=== PATIENT | female | born 1970 | race Two or more races ===

== ENCOUNTER 2025-03-06 21:35 | Emergency (ER) | payer MEDICAID, OTHER ==
[~2025-03-06] VITALS: Ht 165.1 cm; Wt 120.0 kg
[2025-03-06] MEDS: ONDANSETRON HCL 4 MG/2 ML VIAL IV ONE (22:00)
[2025-03-06] MEDS: LORazepam 2MG/ML-1ML VIAL IV ONE (22:00)
[2025-03-06] MEDS: HYDROmorphone HCL 2 MG/ML VL/or syr IV ONE (22:00)
[2025-03-06 22:06] LABS: Basophils # (auto) 0.1 10 ^3/uL (0-0.2); Basophils % (auto) 0.9 % (0.0-2.0); Eosinophils # (auto) 0.3 10 ^3/uL (0-0.8); Eosinophils % (auto) 3.6 % (0.0-7.0); Hematocrit 44.1 % (36.0-46.0); Lymphocytes # (auto) 2.9 10 ^3/uL (0.4-5.4); Mean Corpuscular Hemoglobin 29.1 pg (28.0-32.0); Mean Corpuscular Volume 85.6 fL (80.0-100.0); Monocytes # (auto) 0.3 10 ^3/uL (0-1.3); Monocytes % (auto) 3.8 % (0.0-12.0); Neutrophils # (auto) 4.3 10 ^3/uL (1.6-8.6); Neutrophils % (auto) 54.7 % (37.0-80.0); Nucleated Red Blood Cells % 0.4 %; Platelet Count (auto) 76 10^3/uL (140-450); Red Blood Cells 5.15 10^6/uL (4.0-5.20); White Blood Cell 7.9 10^3/uL (4.4-10.8)
[2025-03-06 22:23] LABS: Alanine Aminotransferase 23 U/L (7-40); Albumin 4.4 g/dL (3.2-4.8); Alkaline Phosphatase 76 U/L (46-116); Anion Gap 9 (5-15); Aspartate Aminotransferase 18 U/L (13-40); BUN/Creatinine Ratio 16.7 (10.0-20.0); Blood Urea Nitrogen 13 mg/dL (9-23); Calcium 9.6 mg/dL (8.7-10.4); Carbon Dioxide 21 mmol/L (20-31); Lipase 41 U/L (12-53); Potassium 3.6 mmol/L (3.5-5.1); Sodium 138 mmol/L (136-145); Total Protein 7.3 g/dL (5.7-8.2)
[2025-03-06 22:24] LABS: Bilirubin, Total 0.4 mg/dL (0.2-1.0)
--- NOTE | 2025-03-06 22:25 | ED.PDOC ---
History of Present Illness HPI Comments 54-year-old female who came to ER via EMS for back pains. Patient does have history of degenerative joint disease, states about an hour ago, while lying down, she developed sudden onset lower back pains, spasms, intermittent, unprovoked, radiating up and down her body. States she could not feel her right leg. Slightest movement aggravates her lower back pains, causing spasms throughout her body. She denies any recent trauma. 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 Family History Family History: Reviewed,noncontributory to illness Social History Smoker: Non-Smoker Alcohol: Denies ETOH Use Drugs: Denies Drug Use Lives In: Home Constitutional: denies: chills, diaphoresis, fatigue, fever, malaise, sweats, weakness, others EENTM: denies: blurred vision, double vision, ear bleeding, ear discharge, ear drainage, ear pain, ear ringing, eye pain, eye redness, hearing loss, mouth pain, mouth swelling, nasal discharge, nose bleeding, nose congestion, nose pain, photophobia, tearing, throat pain, throat swelling, voice changes, others Respiratory: denies: cough, hemoptysis, orthopnea, SOB at rest, shortness of breath, SOB with excertion, stridor, wheezing, others Cardiovascular: denies: chest pain, dizzy spells, diaphoresis, Dyspnea on exertion, edema, irregular heart beat, left arm pain, lightheadedness, palpitations, PND, syncope, others Gastrointestinal: denies: abdomen distended, abdominal pain, blood streaked bowels, constipated, diarrhea, dysphagia, difficulty swallowing, hematemesis, melena, nausea, poor appetite, poor fluid intake, rectal bleeding, rectal pain, vomiting, others Genitourinary: denies: abnormal vagina bleeding, burning, dyspareunia, dysuria, flank pain, frequency, hematuria, incontinence, pain, , vagina discharge, urgency, others Neurological: denies: dizziness, fainting, headache, left sided numbness, left sided weakness, numbness, paresthesia, pre-existing deficit, right sided numbness, right sided weakness, seizure, speech problems, tingling, tremors, weakness, others Musculoskeletal: reports: back pain; denies: gout, joint pain, joint swelling, muscle pain, muscle stiffness, neck pain, others Integumetry: denies: bruises, change in color, change in hair/nails, dryness, laceration, lesions, lumps, rash, wounds, others Allergic/Immunocompromised: denies: Difficulty Healing, Frequent Infections, Hives, Itching, others Hematologic/Lymphatic: denies: anemia, blood clots, easy bleeding, easy bruising, swollen glands, others Endocrine: denies: excessive hunger, excessive sweating, excessive thirst, excessive urination, flushing, intolerance to cold, intolerance to heat, unexplained weight gain, unexplained weight loss, others Psychiatric: denies: anxiety, bipolar disorder, depression, hopeless, panic disorder, schizophrenia, sleepless, suicidal, others Physical Exam General Appearance: No Apparent Distress, Normal HEENT: Normal ENT Inspection, Pharynx Normal, TMs Normal Neck: Full Range of Motion, Non-Tender, Normal, Normal Inspection Respiratory: Chest Non-Tender, Lungs Clear, No Accessory Muscle Use, No Respiratory Distress, Normal Breath Sounds Cardiovascular: No Edema, No JVD, No Murmur, No Gallop, Normal Peripheral Pulses, Regular Rate/Rhythm Breast Exam: Deferred Gastrointestinal: No Organomegaly, Non Tender, No Pulsatile Mass, Normal Bowel Sounds, Soft Genitalia: Deferred Pelvic: Deferred Rectal: Deferred Extremities: No calf tenderness, Normal capillary refill, Normal inspection, Normal range of motion, Non-tender, No pedal edema Musculoskeletal : Apperance: Normal Neurologic: Alert, emergency generator 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 Was a procedure done?: No Differential Dx Considerations may include: Musculoskeletal pain. Lumbosacral strain. Sciatica. Degenerative joint disease X-Ray, Labs, Meds, VS Vital Signs Date Time Temp Pulse Resp B/P (MAP) Pulse Ox O2 Delivery O2 Flow Rate FiO2 03/06/25 22:27 97.3 59 18 154/81 (105) 100 97.3 03/06/25 22:00 75 18 125/82 Lab Test 03/06/25 21:56 Range/Units White Blood Count 7.9 4.4-10.8 10^3/uL Red Blood Count 5.15 4.0-5.20 10^6/uL Hemoglobin 15.0 12.2-16.2 g/dL Hematocrit 44.1 36.0-46.0 % Mean Corpuscular Volume 85.6 80.0-100.0 fL Mean Corpuscular Hemoglobin 29.1 28.0-32.0 pg Mean Corpuscular Hemoglobin Concent 34.0 32.0-36.0 g/dL Red Cell Distribution Width 15.0 H 11.8-14.3 % Platelet Count 76 L 140-450 10^3/uL Mean Platelet Volume 8.4 6.9-10.8 fL Neutrophils (%) (Auto) 54.7 37.0-80.0 % Lymphocytes (%) (Auto) 37.0 10.0-50.0 % Monocytes (%) (Auto) 3.8 0.0-12.0 % Eosinophils (%) (Auto) 3.6 0.0-7.0 % Basophils (%) (Auto) 0.9 0.0-2.0 % Neutrophils # (Auto) 4.3 1.6-8.6 10 ^3/uL Lymphocytes # (Auto) 2.9 0.4-5.4 10 ^3/uL Monocytes # (Auto) 0.3 0-1.3 10 ^3/uL Eosinophils # (Auto) 0.3 0-0.8 10 ^3/uL Basophils # (Auto) 0.1 0-0.2 10 ^3/uL Nucleated Red Blood Cells 0.4 % Sodium Level 138 136-145 mmol/L Potassium Level 3.6 3.5-5.1 mmol/L Chloride Level 108 H 98-107 mmol/L Carbon Dioxide Level 21 20-31 mmol/L Anion Gap 9 5-15 Blood Urea Nitrogen 13 9-23 mg/dL Creatinine 0.78 0.550-1.02 mg/dL Glomerular Filtration Rate Calc 90 >90 mL/min BUN/Creatinine Ratio 16.7 10.0-20.0 Serum Glucose 110 H 74-106 mg/dL Calcium Level 9.6 8.7-10.4 mg/dL Total Bilirubin 0.4 0.2-1.0 mg/dL Aspartate Amino Transferase (AST) 18 13-40 U/L Alanine Aminotransferase (ALT) 23 7-40 U/L Alkaline Phosphatase 76 46-116 U/L Total Protein 7.3 5.7-8.2 g/dL Albumin 4.4 3.2-4.8 g/dL Lipase 41 12-53 U/L Current Medications Medications (Trade) Dose Ordered Sig/Briana Route Start Time Stop Time Status Last Admin Ondansetron HCl (Zofran) 4 mg ONCE ONCE IV 03/06/25 22:00 03/06/25 22:01 DC 03/06/25 22:00 Hydromorphone HCl (Dilaudid Injection) 1 mg ONCE ONCE IV 03/06/25 22:00 03/06/25 22:01 DC 03/06/25 22:00 Lorazepam (Ativan Inj) 1 mg ONCE ONCE IV 03/06/25 22:00 03/06/25 22:01 DC 03/06/25 22:00 CT SCAN ABDOMEN AND PELVIS WITHOUT CONTRAST CLINICAL HISTORY: low back and flank pain TECHNIQUE: Helical axial images are obtained from the lung bases through the pelvis without oral contrast. No intravenous contrast was administered. Coronal and sagittal reformatted images were generated from thin section reconstructions. One or more of the following radiation dose reduction techniques were used for this examination: automated exposure control, adjustment of the mA and/or kV according to patient size, use of iterative reconstruction technique. COMPARISON: None available. Degenerative changes at L5-S1. FINDINGS: LOWER THORAX: Scattered atelectasis / scarring in the imaged lung bases. ABDOMEN AND PELVIS: Evaluation of visceral and vascular structures is limited due to lack of contrast administration. As visualized, the unenhanced liver, spleen, pancreas and right adrenal appear grossly unremarkable. Small low-density lesion involving the left adrenal gland measuring approximately 1.4 cm in diameter. MRI may be obtained to further evaluate. The gallbladder is surgically absent. Prominence of the extrahepatic ducts may reflect the post cholecystectomy state. No hydroureteronephrosis or sizable, obstructing urinary tract calculi identified. Small exophytic lesion arising from the left interpolar kidney may represent a cyst but is too small to further characterize. Ultrasound may be obtained further evaluate. No evidence of abdominal aortic aneurysm. No evidence of bowel obstruction. Normal caliber appendix. No free intraperitoneal air or fluid identified. No sizable bladder calculus. No destructive osseous lesions identified. Degenerative changes at L5-S1. Bridging osteophyte noted at the anterior aspect of the right superior sacroiliac joint. IMPRESSION: No hydroureteronephrosis or sizable, obstructing urinary tract calculi identif ied at this time. No evidence of bowel obstruction. A few other findings as above. Time of 1ST Reevaluation: 22:21 Reevaluation 1ST: Unchanged Patient Education/Counseling: Diagnosis, Treatment Family Education/Counseling: No Family Present Departure 1 Departure Time of Disposition: 01:17 Impression: Primary Impression: Low back pain Additional Impression: Lumbar paraspinal muscle spasm Disposition: HOME / SELF CARE / HOMELESS Condition: Stable e-Prescriptions Cyclobenzaprine Hcl (CYCLOBENZAPRINE HCL) 7.5 Mg Tab 7.5 MG PO Q6HP PRN, #30 TAB Prov: ELLEN FORDE MD 03/07/25 Gabapentin (Once-Daily) (Gabapentin) 300 Mg Tab 300 MG PO Q6HP PRN, #60 TAB Prov: ELLEN FORDE MD 03/07/25 Discharged With: Self Critical Care Note Critical Care Time?: No Stability Stability form required: No Heart Score Heart Score: Heart Score Response (Comments) Value History N/A 0 EKG N/A 0 Age N/A 0 Risk Factors N/A 0 Troponin N/A 0 Total 0 I personally scribed for ELLEN FORDE MD ([email or web address]) on 03/06/25 at 22:25. Electronically submitted by Sean Fallon ([email or web address]). I personally scribed for ELLEN FORDE MD ([email or web address]) on 03/07/25 at 00:49. Electronically submitted by Sean Fallon ([email or web address]). ELLEN FORDE MD Mar 06, 2025 22:25
[2025-03-06 22:27] VITALS: TEMP 97.3
[2025-03-06 22:43] LABS: Chloride 108 mmol/L (98-107); Glucose 110 mg/dL (74-106)
[2025-03-06 22:50] VITALS: PULSE 72; RESP 18; O2SAT 96
--- NOTE | 2025-03-07 00:38 | DVH ---
CT SCAN ABDOMEN AND PELVIS WITHOUT CONTRAST CLINICAL HISTORY: low back and flank pain TECHNIQUE: Helical axial images are obtained from the lung bases through the pelvis without oral cont rast. No intravenous contrast was administered. Coronal and sagittal reformatted images were generate d from thin section reconstructions. One or more of the following radiation dose reduction techniques were used for this examination: automated exposure control, adjustment of the mA and/or kV according to patient size, use of iterative reconstruction technique. COMPARISON: None available. Degenerative changes at L5-S1. FINDINGS: LOWER THORAX: Scattered atelectasis / scarring in the imaged lung bases. ABDOMEN AND PELVIS: Evaluation of visceral and vascular structures is limited due to lack of contrast administration. As visualized, the unenhanced liver, spleen, pancreas and right adrenal appear grossly unremarkable. Small low-density lesion involving the left adrenal gland measuring approximately 1.4 cm in diameter. MRI may be obtained to further evaluate. The gallbladder is surgically absent. Prominence of the extrahepatic ducts may reflect the post chol ecystectomy state. No hydroureteronephrosis or sizable, obstructing urinary tract calculi identified. Small exophytic le ingrid arising from the left interpolar kidney may represent a cyst but is too small to further charact erize. Ultrasound may be obtained further evaluate. No evidence of abdominal aortic aneurysm. No evidence of bowel obstruction. Normal caliber appendix. No free intraperitoneal air or fluid iden tified. No sizable bladder calculus. No destructive osseous lesions identified. Degenerative changes at L5-S1. Bridging osteophyte noted at the anterior aspect of the right superior sacroiliac joint. IMPRESSION: No hydroureteronephrosis or sizable, obstructing urinary tract calculi identified at this time. No evidence of bowel obstruction. A few other findings as above.
[2025-03-07] MEDS ORDERED: GABA300T4 PO (00:54)
[2025-03-07] MEDS ORDERED: CYCL-838 PO (00:54)
[2025-03-07] MEDS: HYDROMORPHONE HCL 1 MG/ML INJ IV ONE (01:48)
[2025-03-07 02:00] VITALS: O2SAT 95
[2025-03-07] MEDS: HYDROmorphone HCL 2 MG/ML VL/or syr IV ONE (02:04)
[2025-03-07 03:34] VITALS: BP 140/80; PULSE 75; RESP 16
== END 2025-03-07 07:57 | disposition home or self-care (01) ==
LOC: EDBD 21:35 → ER 21:35
DX: M62.830 Muscle spasm of back (principal); M54.50 Low back pain, unspecified; M19.90 Unspecified osteoarthritis, unspecified site; Z98.890 Other specified postprocedural states
CPT/HCPCS: 36415; 74176; 80053; 83690; 85025; 96374; 96375; 96376; 99285; J1171; J2060; J2405

== ENCOUNTER 2025-04-21 09:55 | Inpatient (IN) | payer MEDICAID ==
[~2025-04-21] VITALS: Ht 165.1 cm; Wt 116.1 kg
[~2025-04-21 09:55] MED LIST: CYCL-838 PO; GABA300T4 PO
--- NOTE | 2025-04-21 10:24 | ECG ---
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
--- NOTE | 2025-04-21 10:44 | ED.PDOC ---
GI ASSESSMENT HPI Comments 54 y/o F, with PMHx of arthritis presents to the ED for CC of abdominal pain. Patient states she has been experiencing epigastric abdominal pain with associated symptoms of nausea/vomiting x1week. Patient relays, being seen at [facility] last week for SS and being departed from ED with no significant findings however, symptoms have persisted. Patient reports, new onset symptoms of non-radiating substernal chest pain starting today (04/21/25). Patient denies charge in diet, recent travel, fever, chills, or diarrhea. No other symptoms or modifying factors present at this time. Chief Complaint: Abdominal Pain Time Seen by MD: 10:40 Reviewed Notes: Nurses Notes, Medications, Allergies Allergies: Coded Allergies: NO KNOWN ALLERGIES (Unverified , 04/21/25) Home Meds Active Scripts Cyclobenzaprine Hcl (CYCLOBENZAPRINE HCL) 7.5 Mg Tab, 7.5 MG PO Q6HP PRN, #30 TAB Prov:ELLEN FORDE MD 03/07/25 Gabapentin (Once-Daily) (Gabapentin) 300 Mg Tab, 300 MG PO Q6HP PRN, #60 TAB Prov:ELLEN FORDE MD 03/07/25 Information Source: Patient Mode of Arrival: Ambulatory Timing: Weeks Duration: Since onset Prehospital treatment: None Quality: None Vomitus: Watery Stool: Normal Severity: Moderate Recent: None Recent Hx of: None Pain Location: Epigastric Modifying Factors: Nothing Associated sign and symptoms: Nausea, Vomiting, Abdominal Pain Past Medical History PAST MEDICAL HISTORY: Arthritis Surgical History: Denies all surgeries 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 Family History Family History: Reviewed,noncontributory to illness Social History Smoker: Non-Smoker Alcohol: Denies ETOH Use Drugs: Denies Drug Use Lives In: Home Constitutional: denies: chills, diaphoresis, fatigue, fever, malaise, sweats, weakness, others EENTM: denies: blurred vision, double vision, ear bleeding, ear discharge, ear drainage, ear pain, ear ringing, eye pain, eye redness, hearing loss, mouth pain, mouth swelling, nasal discharge, nose bleeding, nose congestion, nose pain, photophobia, tearing, throat pain, throat swelling, voice changes, others Respiratory: denies: cough, hemoptysis, orthopnea, SOB at rest, shortness of breath, SOB with excertion, stridor, wheezing, others Cardiovascular: reports: chest pain; denies: dizzy spells, diaphoresis, Dyspnea on exertion, edema, irregular heart beat, left arm pain, lightheadedness, palpitations, PND, syncope, others Gastrointestinal: reports: abdominal pain, nausea, vomiting; denies: abdomen distended, blood streaked bowels, constipated, diarrhea, dysphagia, difficulty swallowing, hematemesis, melena, poor appetite, poor fluid intake, rectal bleeding, rectal pain, others Genitourinary: denies: abnormal vagina bleeding, burning, dyspareunia, dysuria, flank pain, frequency, hematuria, incontinence, pain, , vagina discharge, urgency, others Neurological: denies: dizziness, fainting, headache, left sided numbness, left sided weakness, numbness, paresthesia, pre-existing deficit, right sided numbness, right sided weakness, seizure, speech problems, tingling, tremors, weakness, others Musculoskeletal: denies: back pain, gout, joint pain, joint swelling, muscle p ain, muscle stiffness, neck pain, others Integumetry: denies: bruises, change in color, change in hair/nails, dryness, laceration, lesions, lumps, rash, wounds, others Allergic/Immunocompromised: denies: Difficulty Healing, Frequent Infections, Hives, Itching, others Hematologic/Lymphatic: denies: anemia, blood clots, easy bleeding, easy bruising, swollen glands, others Endocrine: denies: excessive hunger, excessive sweating, excessive thirst, excessive urination, flushing, intolerance to cold, intolerance to heat, unexplained weight gain, unexplained weight loss, others Psychiatric: denies: anxiety, bipolar disorder, depression, hopeless, panic disorder, schizophrenia, sleepless, suicidal, others All Other Systems: Reviewed and Negative Physical Exam General Appearance: No Apparent Distress, Normal HEENT: Normal ENT Inspection, Pharynx Normal Neck: Full Range of Motion, Non-Tender, Normal, Normal Inspection Respiratory: Chest Non-Tender, Lungs Clear, No Accessory Muscle Use, No Respiratory Distress, Normal Breath Sounds Cardiovascular: No Edema, No Murmur, No Gallop, Normal Peripheral Pulses, Regular Rate/Rhythm Breast Exam: Deferred Gastrointestinal: No Organomegaly, Non Tender, No Pulsatile Mass, Normal Bowel Sounds, Soft Genitalia: Deferred Pelvic: Deferred Rectal: Deferred Extremities: No calf tenderness, Normal capillary refill, Normal inspection, Normal range of motion, Non-tender, No pedal edema Musculoskeletal : Apperance: Normal Neurologic: Alert, ios developer II-XII nml as Tested, No Motor Deficits, Normal Affect, Normal Mood, No Sensory Deficits Cerebellar Function: Normal Reflexes: Normal Skin: Dry, Normal Color, Warm Lymphatic: No Adenopathy Was a procedure done? Was a procedure done?: No GI differential Dx Differential Diagnosis: Gastritis/PUD, Gastroenteritis, Electrolyte Imbalance, Food Poisoning, Bacterial, Viral X-Ray, Labs, Meds, VS Vital Signs Date Time Temp Pulse Resp B/P (MAP) Pulse Ox O2 Delivery O2 Flow Rate FiO2 04/21/25 11:26 97.6 75 16 123/78 (93) 98 97.6 04/21/25 11:24 75 18 123/78 04/21/25 10:59 67 20 96 Room Air* 0 21 04/21/25 10:07 64 04/21/25 10:06 97.7 67 20 143/86 (105) 96 97.7 04/21/25 10:06 97.7 67 20 143/86 (105) 96 97.7 Lab Test 04/21/25 11:46 04/21/25 10:38 Range/Units Urine Color Light-yellow Yellow Urine Clarity Ex.turbid Clear Urine pH 8.5 5.0-9.0 Urine Specific [place] 1.022 1.001-1.035 Urine Protein 1+ H Negative Urine Ketones Negative Negative Urine Blood Negative Negative /uL Urine Nitrite Negative Negative Urine Bilirubin Negative Negative Urine Urobilinogen Normal Negative mg/dL Urine Leukocyte Esterase Negative Negative /uL Urine RBC 2 0 - 4 /hpf Urine Microscopic WBC 23 H 0-5 /HPF Urine Squamous Epithelial Cells Few <5 /hpf Urine Bacteria None seen None Seen /hpf Urine Glucose Normal Normal mg/dL White Blood Count 9.4 4.4-10.8 10^3/uL Red Blood Count 5.27 H 4.0-5.20 10^6/uL Hemoglobin 15.6 12.2-16.2 g/dL Hematocrit 44.8 36.0-46.0 % Mean Corpuscular Volume 85.1 80.0-100.0 fL Mean Corpuscular Hemoglobin 29.6 28.0-32.0 pg Mean Corpuscular Hemoglobin Concent 34.9 32.0-36.0 g/dL Red Cell Distribution Width 14.6 H 11.8-14.3 % Platelet Count 218 140-450 10^3/uL Mean Platelet Volume 8.5 6.9-10.8 fL Neutrophils (%) (Auto) 77.1 37.0-80.0 % Lymphocytes (%) (Auto) 18.5 10.0-50.0 % Monocytes (%) (Auto) 3.0 0.0-12.0 % Eosinophils (%) (Auto) 0.6 0.0-7.0 % Basophils (%) (Auto) 0.8 0.0-2.0 % Neutrophils # (Auto) 7.2 1.6-8.6 10 ^3/uL Lymphocytes # (Auto) 1.7 0.4-5.4 10 ^3/uL Monocytes # (Auto) 0.3 0-1.3 10 ^3/uL Eosinophils # (Auto) 0.1 0-0.8 10 ^3/uL Basophils # (Auto) 0.1 0-0.2 10 ^3/uL Nucleated Red Blood Cells 0.0 % Sodium Level 140 136-145 mmol/L Potassium Level 4.0 3.5-5.1 mmol/L Chloride Level 105 98-107 mmol/L Carbon Dioxide Level 26 20-31 mmol/L Anion Gap 9 5-15 Blood Urea Nitrogen 11 9-23 mg/dL Creatinine 0.97 0.550-1.02 mg/dL Glomerular Filtration Rate Calc 69 >90 mL/min BUN/Creatinine Ratio 11.3 10.0-20.0 Serum Glucose 118 H 74-106 mg/dL Calcium Level 10.8 H 8.7-10.4 mg/dL Current Medications Medications (Trade) Dose Ordered Sig/Briana Route Start Time Stop Time Status Last Admin Sodium Chloride 1,000 ml @ 1,000 mls/hr Q1H ONCE IV 04/21/25 11:15 04/21/25 12:14 DC 04/21/25 11:24 Ondansetron HCl (Zofran) 4 mg ONCE ONCE IV 04/21/25 11:15 04/21/25 11:16 DC 04/21/25 11:24 Morphine Sulfate 4 mg ONCE ONCE IV 04/21/25 11:15 04/21/25 11:16 DC 04/21/25 11:24 Famotidine (Pepcid Injection) 20 mg ONCE ONCE IV 04/21/25 11:15 04/21/25 11:16 DC 04/21/25 11:24 Time of 1ST Reevaluation: 11:10 Reevaluation 1ST: Unchanged Patient Education/Counseling: Diagnosis, Treatment Family Education/Counseling: No Family Present Departure 1 Departure Time of Disposition: 13:04 (Patient with intractable nausea and vomiting. Patient also intractable abdominal pain. Patient's labs and CT scan are benign. We will admit patient for further workup and expert consultation) Impression: Primary Impression: Intractable abdominal pain Additional Impression: Intractable nausea and vomiting Disposition: ADMITTED INPATIENT Admit to: Med Surg Condition: Serious Critical Care Note Critical Care Time?: Yes Critical care comment: Intractable abdominal pain Authorized and Performed by: Tani Boyer MD Total critical care time: Approximately 39 minutes Due to a high probability of clinically significant, life threatening deterioration, the patient required my highest level of preparedness to intervene emergently and I personally spent this critical care time directly and personally managing the patient. This critical care time included obtaining a history; examining the patient; pulse oximetry; ordering and review of studies; arranging urgent treatment with development of a management plan; evaluation of patient's response to treatment; frequent reassessment; and, discussions with other providers. This critical care time was performed to assess and manage the high probability of imminent, life-threatening deterioration that could result in multi-organ failure. It was exclusive of separately billable procedures and treating other patients and teaching time. Please see my other sections and the rest of the note for further information on patient assessment and treatment. Stability Stability form required: No Heart Score Heart Score: Heart Score Response (Comments) Value History N/A 0 EKG N/A 0 Age N/A 0 Risk Factors N/A 0 Troponin N/A 0 Total 0 I personally scribed for TANI BOYER MD ([email or web address]) on 04/21/25 at 10:44. Electronically submitted by Kaylan Leslie ([email or web address]). I personally scribed for TANI BOYER MD ([email or web address]) on 6/10/25 at 11:07. Electronically submitted by Kaylan Leslie ([email or web address]). TANI BOYER MD Apr 21, 2025 10:44
[2025-04-21 10:52] LABS: Basophils # (auto) 0.1 10 ^3/uL (0-0.2); Basophils % (auto) 0.8 % (0.0-2.0); Eosinophils # (auto) 0.1 10 ^3/uL (0-0.8); Eosinophils % (auto) 0.6 % (0.0-7.0); Hematocrit 44.8 % (36.0-46.0); Hemoglobin 15.6 g/dL (12.2-16.2); Lymphocytes # (auto) 1.7 10 ^3/uL (0.4-5.4); Lymphocytes % (auto) 18.5 % (10.0-50.0); Mean Corpuscular Hemoglobin 29.6 pg (28.0-32.0); Mean Corpuscular Hgb Conc. 34.9 g/dL (32.0-36.0); Mean Corpuscular Volume 85.1 fL (80.0-100.0); Monocytes # (auto) 0.3 10 ^3/uL (0-1.3); Neutrophils # (auto) 7.2 10 ^3/uL (1.6-8.6); Neutrophils % (auto) 77.1 % (37.0-80.0); Platelet Count (auto) 218 10^3/uL (140-450); Red Blood Cells 5.27 10^6/uL (4.0-5.20); Red Cell Distribution Width 14.6 % (11.8-14.3); White Blood Cell 9.4 10^3/uL (4.4-10.8)
[2025-04-21 10:59] VITALS: PULSE 67; RESP 20; O2SAT 96
[2025-04-21 10:59] LABS: Chloride 105 mmol/L (98-107); Sodium 140 mmol/L (136-145)
[2025-04-21 11:00] LABS: Carbon Dioxide 26 mmol/L (20-31)
[2025-04-21 11:02] LABS: Calcium 10.8 mg/dL (8.7-10.4)
[2025-04-21 11:03] LABS: Anion Gap 9 (5-15)
[2025-04-21 11:06] LABS: BUN/Creatinine Ratio 11.3 (10.0-20.0); Blood Urea Nitrogen 11 mg/dL (9-23)
[2025-04-21 11:08] LABS: Glucose 118 mg/dL (74-106)
[2025-04-21] MEDS: MORPHINE SULFATE 4 MG/ML SYR/VIAL IV ONE (11:24)
[2025-04-21] MEDS: ONDANSETRON HCL 4 MG/2 ML VIAL IV ONE ×2 (11:24→13:09)
[2025-04-21] MEDS: SODIUM CHLORIDE 0.9% 1,000 ML IV ONE ×2 (11:24→17:14)
[2025-04-21] MEDS: FAMOTIDINE (10MG/ML) 2ML VL IV ONE (11:24)
[2025-04-21 11:47] LABS: Urine Bacteria None Seen /hpf (None Seen)
[2025-04-21 12:00] LABS: Urine Blood Negative /uL (Negative); Urine Clarity Ex.Turbid (Clear); Urine Color Light-Yellow (Yellow); Urine Protein, UAD 1+ (Negative); Urine Specific Gravity 1.022 (1.001-1.035); Urine Squamous Epithelial Cell FEW /hpf (<5); Urine Urobilinogen Normal (Negative); Urine WBC 23 /HPF (0-5); Urine pH 8.5 (5.0-9.0)
[2025-04-21] MEDS: IOHEXOL 300 MG/ML 100ML BOTTLE IJ ONE (12:23)
--- NOTE | 2025-04-21 12:51 | DVH ---
CT CT AB PEL WITH IV CON ONLY INDICATION: intractable abdominal pain EXAM DATE: 04/21/2025 12:12 PM COMPARISON: None RADIATION DOSE: CTDIvol: 27.73 mGy, DLP: 1302.1 mGy*cm PROCEDURE: Helical CT images were obtained of the abdomen and pelvis with IV contrast Sagittal and co melecio reconstructions are provided. ORAL CONTRAST: None. ADDITIONAL IMAGES / REFORMATS: None All CT s cans at this medical facility are performed using dose modulation techniques as appropriate to a perf ormed exam including the following: Automated exposure control was utilized; adjustment of the MA and /or KV according to patient size; and use of iterative reconstruction technique. FINDINGS: LUNG BASE: Normal. LIVER: Mild hepatic steatosis. GALLBLADDER AND BILIARY TREE: Molly clips. No intra- or extrahepatic biliary ductal dilation. PANCREAS: Normal. SPLEEN: Normal. BOWEL: Normal. Normal appendix. ADRENALS: 1.2 cm left adrenal nodule. KIDNEYS AND URETER: Smal bilateral kidney cysts. BLADDER: Normal. REPRODUCTIVE ORGANS: Normal. LYMPH NODES:No lymphadenopathy. PERITONEUM: No ascites or free air. No other fluid collection. VESSELS: Scattered atherosclerotic calcifications are noted. RETROPERITONEUM: Normal. ABDOMINAL WALL: Normal. BONES: Scattered osseous degenerative changes are noted. IMPRESSION: No acute intraabdominal abnormality. No kidney stones. Normal appendix.
[2025-04-21] MEDS: HALOPERIDOL LACTATE 5 MG/ML INJ VIAL IM ONE (13:28)
[2025-04-21] MEDS ORDERED: SOLI10TA39 PO (16:40)
[2025-04-21] MEDS ORDERED: LEVO50TA7 PO (16:40)
[2025-04-21] MEDS ORDERED: HYDR-3682 PO (16:40)
[2025-04-21] MEDS ORDERED: CYCL-611 PO (16:40)
[2025-04-21] MEDS ORDERED: PANT40T PO (16:40)
[2025-04-21] MEDS ORDERED: ONDANSETRON HCL 4 MG/2 ML VIAL IV PRN (16:45)
[2025-04-21] MEDS ORDERED: CYCLOBENZAPRINE HCL 10 MG TAB PO PRN (16:45)
[2025-04-21] MEDS ORDERED: DOCUSATE SOD 100 MG CAP PO PRN (16:45)
[2025-04-21] MEDS ORDERED: METOCLOPRAMIDE HCL 5MG/ml INJ 2ml VIAL IV PRN (16:45)
[2025-04-21] MEDS ORDERED: ACETAMINOPHEN 325 MG TAB PO PRN (16:45)
[2025-04-21] MEDS ORDERED: OXYCODONE W/ ACETAMINOPHEN 5/325MG TABLET PO PRN (16:45)
[2025-04-21] MEDS ORDERED: PATIENTS OWN MEDICATION (Hydroxyzine Hcl 1 TAB) PO PRN (16:45)
--- NOTE | 2025-04-21 16:54 | DVHHP2 ---
History of Present Illness Reason for Visit: Abdominal pain History of Present Illness Silvia Lemon is a 54-year-old female with past medical history of hypothyroidism, GERD, chronic pain, and anxiety, who came to the hospital for abdominal pain. Patient states she has been experiencing abdominal pain with associated nausea, vomiting, and diarrhea for about 1 week. She states she went to the hospital when it first started and was given Zofran, but it hasn't helped her. She woke up this morning with the abdominal pain, began vomiting uncontrollably, and has at least 4 diarrhea bowl movements a day. She states about 4 years ago she had a similar event. Her stool was tested and she was started on PO antibiotics. GI: GERD Psych: Anxiety Endocrine: Hypothyroidism Past Surgical History: Cholecystectomy, Cataract Removal, Hernia Repair, Other (tubal ), Tonsillectomy Smoke: Quit (August 2024) ALCOHOL: none Drugs: Marijuana Lives: with Family Domestic Violence: Neg Review of Systems Constitutional: No: Fever, Chills, Sweats, Weakness, Malaise, Other Eyes: No: Pain, Vision change, Conjunctivae inflammation, Eyelid inflammation, Other, Redness ENT: No: Ear pain, Ear discharge, Nose pain, Nose discharge, Nose congestion, Mouth pain, Mouth swelling, Throat pain, Throat swelling, Other Respiratory: No: Cough, Dry, Shortness of breath, SOB with excertion, Wheezing, Hemoptysis, Pleuritic Pain, Sputum, Wheezing, Other Cardiovascular: No: Chest Pain, Palpitations, Orthopnea, Paroxysmal Noc. Dyspnea, Edema, Lt Headedness, Other Gastrointestinal: Nausea, Vomiting, Abdominal Pain, Diarrhea; No: Constipation, Melena, Hematochezia, Other Genitourinary: No Dysuria, No Frequency, No Incontinence, No Hematuria, No Retention, No Other Musculoskeletal: No: other, neck pain, shoulder pain, arm pain, back pain, hand pain, leg pain, foot pain Skin: No: Rash, Lesions, Jaundice, Bruising, Other Neurological: No: Weakness, Numbness, Incoordination, Change in speech, Confusion, Seizures, Other Allergies: Coded Allergies: NO KNOWN ALLERGIES (Unverified , 04/21/25) Medications Current Medications Medications Dose Ordered Sig/Briana Route Start Time Stop Time Status Last Admin Dose Admin Ondansetron HCl 4 mg Q4HP PRN IV 04/21/25 16:45 UNV Docusate Sodium 100 mg BIDPRN PRN PO 04/21/25 16:45 UNV Acetaminophen 650 mg Q6HP PRN PO 04/21/25 16:45 UNV Metoclopramide HCl 10 mg Q8HPRN PRN IV 04/21/25 16:45 UNV Pantoprazole Sodium 40 mg BID IV 04/21/25 22:00 UNV Cyclobenzaprine HCl 10 mg BIDP PRN PO 04/21/25 16:45 UNV Levothyroxine Sodium 50 mcg DAILY PO 04/22/25 10:00 UNV Patient Own Medication 1 tab HSPRN PRN PO 04/21/25 16:45 UNV Patient Own Medication 1 tab DAILY PO 04/22/25 10:00 UNV Exam Vital Signs Vital Signs Date Time Temp Pulse Resp B/P (MAP) Pulse Ox O2 Delivery O2 Flow Rate FiO2 04/21/25 11:26 97.6 75 16 123/78 (93) 98 97.6 04/21/25 10:59 Room Air* 0 21 General Appearance: Alert, Oriented X3, Cooperative, moderate distress HEENT: Atraumatic, PERRLA Respiratory: Clear to auscultation, Normal air movement Cardiovascular: Regular rate, Normal S1, Normal S2 Abdominal: Normal bowel sounds, Soft, Other (umblical pain, nausea/vomiting, diarrhea) Extremities: No clubbing, No cyanosis, No edema, Normal pulses Skin: No rashes, No breakdown, No significant lesion Neuro: Normal gait, Normal speech, Strength at 5/5 X4 ext Psych/Mental Status: Mental status NL, Mood NL Labs/Xrays Labs Test 04/21/25 11:46 04/21/25 10:38 Range/Units Urine Color Light-yellow Yellow Urine Clarity Ex.turbid Clear Urine pH 8.5 5.0-9.0 Urine Specific [place] 1.022 1.001-1.035 Urine Protein 1+ H Negative Urine Ketones Negative Negative Urine Blood Negative Negative /uL Urine Nitrite Negative Negative Urine Bilirubin Negative Negative Urine Urobilinogen Normal Negative mg/dL Urine Leukocyte Esterase Negative Negative /uL Urine RBC 2 0 - 4 /hpf Urine Microscopic WBC 23 H 0-5 /HPF Urine Squamous Epithelial Cells Few <5 /hpf Urine Bacteria None seen None Seen /hpf Urine Glucose Normal Normal mg/dL White Blood Count 9.4 4.4-10.8 10^3/uL Red Blood Count 5.27 H 4.0-5.20 10^6/uL Hemoglobin 15.6 12.2-16.2 g/dL Hematocrit 44.8 36.0-46.0 % Mean Corpuscular Volume 85.1 80.0-100.0 fL Mean Corpuscular Hemoglobin 29.6 28.0-32.0 pg Mean Corpuscular Hemoglobin Concent 34.9 32.0-36.0 g/dL Red Cell Distribution Width 14.6 H 11.8-14.3 % Platelet Count 218 140-450 10^3/uL Mean Platelet Volume 8.5 6.9-10.8 fL Neutrophils (%) (Auto) 77.1 37.0-80.0 % Lymphocytes (%) (Auto) 18.5 10.0-50.0 % Monocytes (%) (Auto) 3.0 0.0-12.0 % Eosinophils (%) (Auto) 0.6 0.0-7.0 % Basophils (%) (Auto) 0.8 0.0-2.0 % Neutrophils # (Auto) 7.2 1.6-8.6 10 ^3/uL Lymphocytes # (Auto) 1.7 0.4-5.4 10 ^3/uL Monocytes # (Auto) 0.3 0-1.3 10 ^3/uL Eosinophils # (Auto) 0.1 0-0.8 10 ^3/uL Basophils # (Auto) 0.1 0-0.2 10 ^3/uL Nucleated Red Blood Cells 0.0 % Sodium Level 140 136-145 mmol/L Potassium Level 4.0 3.5-5.1 mmol/L Chloride Level 105 98-107 mmol/L Carbon Dioxide Level 26 20-31 mmol/L Anion Gap 9 5-15 Blood Urea Nitrogen 11 9-23 mg/dL Creatinine 0.97 0.550-1.02 mg/dL Glomerular Filtration Rate Calc 69 >90 mL/min BUN/Creatinine Ratio 11.3 10.0-20.0 Serum Glucose 118 H 74-106 mg/dL Calcium Level 10.8 H 8.7-10.4 mg/dL CT CT AB PEL WITH IV CON ONLY FINDINGS: LUNG BASE: Normal. LIVER: Mild hepatic steatosis. GALLBLADDER AND BILIARY TREE: Molly clips. No intra- or extrahepatic biliary ductal dilation. PANCREAS: Normal. SPLEEN: Normal. BOWEL: Normal. Normal appendix. ADRENALS: 1.2 cm left adrenal nodule. KIDNEYS AND URETER: Smal bilateral kidney cysts. BLADDER: Normal. REPRODUCTIVE ORGANS: Normal. LYMPH NODES:No lymphadenopathy. PERITONEUM: No ascites or free air. No other fluid collection. VESSELS: Scattered atherosclerotic calcifications are noted. RETROPERITONEUM: Normal. ABDOMINAL WALL: Normal. BONES: Scattered osseous degenerative changes are noted. IMPRESSION: No acute intraabdominal abnormality. No kidney stones. Normal appendix. Assessment/Plan Assessment/Plan Assessment: Intractable nausea and vomiting, Intractable abdominal pain, Hypothyroidism, Anxiety, Obesity, Plan: Admit to Med-Surg, GI consult, Send stool for C-diff, ova/parasites, blood, WBC, culture, Clear liquid diet, IV hydration, Antiemetics, Pain management, Home medications reconciled, Plan discussed with: Patient My Orders Orders - SPIKE RICH CLAIMS REPRESENTATIVE Procedure Category Date Status Time Admit ADMIT 04/21/25 Transmitted 16:36 Code Status CODE 04/21/25 Transmitted 16:36 Ondansetron Hcl PHA 04/21/25 Logged (Zofran) 16:45 Docusate Sodium PHA 04/21/25 Logged Capsule (Colace 16:45 Complete Blood Count LAB 04/22/25 Verified 04:00 Comprehensive LAB 04/22/25 Verified Metabolic Panel 04:00 Condition: Serious TAB 04/21/25 In Process 16:36 Acetaminophen Tablet PHA 04/21/25 Logged (Tylenol Tablet) 16:45 Clear Liq Diet DIET 04/21/25 Transmitted Dinner * Gi [facility] [employer] CONS 04/21/25 Transmitted 16:36 Sodium Chloride 0.9% PHA 04/21/25 Logged 16:45 Metoclopramide PHA 04/21/25 Logged Injection (Reglan 16:45 Pantoprazole PHA 04/21/25 Logged (Protonix) 22:00 Cyclobenzaprine PHA 04/21/25 Logged Tablet (Flexeril 16:45 Levothyroxine Tablet PHA 04/22/25 Logged (Synthroid Tablet) 10:00 (Nf) Hydroxyzine Hcl PHA 04/21/25 Logged 16:45 (Nf) Solifenacin PHA 04/22/25 Logged Succinate 10:00 Date of Service: Apr 21, 2025 Billing Provider: SPIKE RICH Common Visit Codes: [id number] INP/OBS CARE (MOD) SPIKE RICH Apr 21, 2025 16:54
[2025-04-21] MEDS ORDERED: hydrOXYzine 25 MG TAB or CAP PO PRN ×2 (17:00)
[2025-04-21] MEDS: PANTOPRAZOLE 40 MG/10 ML VIAL INJ IV SCH (22:29)
[2025-04-21 22:50] VITALS: BP 156/71; PULSE 69; RESP 18; TEMP 97.9; O2SAT 93
[2025-04-22] VITALS (7 sets, daily range): BP systolic 121–146; BP diastolic 50–77; PULSE 65–91; RESP 17–20; TEMP 97.4–98.7; O2SAT 92–100
[2025-04-22] MEDS ORDERED: PREG50CA PO (02:58)
[2025-04-22] MEDS ORDERED: PERCOT PO (02:58)
[2025-04-22] MEDS ORDERED: TIRZ2.5I2 SC (02:58)
[2025-04-22] MEDS ORDERED: CHOL20007 PO (02:58)
[2025-04-22] MEDS ORDERED: SUCR1TAB PO (02:58)
[2025-04-22] MEDS ORDERED: MAGN84TA4 PO (02:58)
[2025-04-22 05:43] LABS: Basophils # (auto) 0 10 ^3/uL (0-0.2); Basophils % (auto) 0.5 % (0.0-2.0); Eosinophils # (auto) 0.1 10 ^3/uL (0-0.8); Eosinophils % (auto) 1.3 % (0.0-7.0); Hemoglobin 14.3 g/dL (12.2-16.2); Lymphocytes # (auto) 2.9 10 ^3/uL (0.4-5.4); Lymphocytes % (auto) 35.2 % (10.0-50.0); Mean Corpuscular Hemoglobin 29.4 pg (28.0-32.0); Mean Corpuscular Hgb Conc. 34.1 g/dL (32.0-36.0); Mean Corpuscular Volume 86.3 fL (80.0-100.0); Monocytes # (auto) 0.5 10 ^3/uL (0-1.3); Monocytes % (auto) 6.3 % (0.0-12.0); Neutrophils # (auto) 4.8 10 ^3/uL (1.6-8.6); Neutrophils % (auto) 56.7 % (37.0-80.0); Nucleated Red Blood Cells % 0.1 %; Platelet Count (auto) 181 10^3/uL (140-450); Red Blood Cells 4.87 10^6/uL (4.0-5.20); Red Cell Distribution Width 14.9 % (11.8-14.3); White Blood Cell 8.4 10^3/uL (4.4-10.8)
[2025-04-22 06:01] LABS: Alanine Aminotransferase 23 U/L (7-40); Alkaline Phosphatase 71 U/L (46-116); Anion Gap 11 (5-15); BUN/Creatinine Ratio 10.5 (10.0-20.0); Calcium 9.5 mg/dL (8.7-10.4); Carbon Dioxide 23 mmol/L (20-31); Glucose 94 mg/dL (74-106); Sodium 142 mmol/L (136-145)
[2025-04-22 06:02] LABS: Total Protein 6.8 g/dL (5.7-8.2)
[2025-04-22 06:03] LABS: Albumin 4.1 g/dL (3.2-4.8); Aspartate Aminotransferase 16 U/L (13-40)
[2025-04-22 06:05] LABS: Blood Urea Nitrogen 8 mg/dL (9-23); Chloride 108 mmol/L (98-107); Potassium 3.4 mmol/L (3.5-5.1)
[2025-04-22 10:36] LABS: Hepatitis B Surface Antigen Negative (Negative); Hepatitis C Antibody Negative (Negative)
[2025-04-22] MEDS: LEVOTHYROXINE SODIUM 50 MCG TAB PO SCH (10:43)
--- NOTE | 2025-04-22 12:53 | DVHINCON2 ---
GI Consult Consult Note GI consult note Date of Consultation: 04/22/2025 Chief Complaint: Intractable nausea and vomiting Referring Physician: Janae KOCH H&P: 54-year-old female with past medical history of arthritis presents to ER with complains of abdominal pain. Patient complaining of having epigastric pain with nausea and vomiting for the past one-week. Patient admits to feeling better, abdominal pain has improved. No nausea or vomiting. Denies hematemesis Patient also complains of diarrhea yesterday 2-3 episodes, today one episode and soft stool. Denies melena or red blood in stool Status post EGD and colonoscopy two years ago at [facility], with polypectomy Patient also history of C diff colitis in past, possibly around two years ago per patient Past Medical History: Arthritis Past Surgical History: Denies Social History: NO smoking, drinking ETOH and use of illegal drugs. Family History: Noncontributory Review of Systems: Constitutional: no fever, chill, weight loss HEENT: no eye pain, no hearing loss, no oral lesion, no scleral icterus Heart: no chest pain, no chest pressure Lung: no cough, no dyspnea with exertion Abdomen: see HPI Physical exam: General: NAD, AAOX3 Chest: lung garcia clear to auscultation Heart: RRR, no murmur Abdomen: non-distended, no tenderness to palpation, +BS Labs: Labs Test 04/22/25 05:01 04/21/25 11:46 Range/Units White Blood Count 8.4 4.4-10.8 10^3/uL Red Blood Count 4.87 4.0-5.20 10^6/uL Hemoglobin 14.3 12.2-16.2 g/dL Hematocrit 42.0 36.0-46.0 % Mean Corpuscular Volume 86.3 80.0-100.0 fL Mean Corpuscular Hemoglobin 29.4 28.0-32.0 pg Mean Corpuscular Hemoglobin Concent 34.1 32.0-36.0 g/dL Red Cell Distribution Width 14.9 H 11.8-14.3 % Platelet Count 181 140-450 10^3/uL Mean Platelet Volume 8.7 6.9-10.8 fL Neutrophils (%) (Auto) 56.7 37.0-80.0 % Lymphocytes (%) (Auto) 35.2 10.0-50.0 % Monocytes (%) (Auto) 6.3 0.0-12.0 % Eosinophils (%) (Auto) 1.3 0.0-7.0 % Basophils (%) (Auto) 0.5 0.0-2.0 % Neutrophils # (Auto) 4.8 1.6-8.6 10 ^3/uL Lymphocytes # (Auto) 2.9 0.4-5.4 10 ^3/uL Monocytes # (Auto) 0.5 0-1.3 10 ^3/uL Eosinophils # (Auto) 0.1 0-0.8 10 ^3/uL Basophils # (Auto) 0 0-0.2 10 ^3/uL Nucleated Red Blood Cells 0.1 % Sodium Level 142 136-145 mmol/L Potassium Level 3.4 L 3.5-5.1 mmol/L Chloride Level 108 H 98-107 mmol/L Carbon Dioxide Level 23 20-31 mmol/L Anion Gap 11 5-15 Blood Urea Nitrogen 8 L 9-23 mg/dL Creatinine 0.76 0.550-1.02 mg/dL Glomerular Filtration Rate Calc 93 >90 mL/min BUN/Creatinine Ratio 10.5 10.0-20.0 Serum Glucose 94 74-106 mg/dL Calcium Level 9.5 8.7-10.4 mg/dL Total Bilirubin 1.0 0.2-1.0 mg/dL Aspartate Amino Transferase (AST) 16 13-40 U/L Alanine Aminotransferase (ALT) 23 7-40 U/L Alkaline Phosphatase 71 46-116 U/L Total Protein 6.8 5.7-8.2 g/dL Albumin 4.1 3.2-4.8 g/dL Hepatitis B Surface Antigen Negative Negative Hepatitis C Antibody Negative Negative Urine Color Light-yellow Yellow Urine Clarity Ex.turbid Clear Urine pH 8.5 5.0-9.0 Urine Specific [place] 1.022 1.001-1.035 Urine Protein 1+ H Negative Urine Ketones Negative Negative Urine Blood Negative Negative /uL Urine Nitrite Negative Negative Urine Bilirubin Negative Negative Urine Urobilinogen Normal Negative mg/dL Urine Leukocyte Esterase Negative Negative /uL Urine RBC 2 0 - 4 /hpf Urine Microscopic WBC 23 H 0-5 /HPF Urine Squamous Epithelial Cells Few <5 /hpf Urine Bacteria None seen None Seen /hpf Urine Glucose Normal Normal mg/dL Imaging: CT abdomen pelvis IMPRESSION: No acute intraabdominal abnormality. No kidney stones. Normal appendix. Assessment: Abdominal pain improving Nausea vomiting improving Diarrhea History of C diff colitis Plan: -discussed with Dr. Darnell Stool studies pending Continue current treatment plan Full liquid diet advance as tolerated We will continue to follow patient Plan discussed with patient and RN Thank you for this consult Date of Service: Apr 22, 2025 Billing Provider: ABDIAZIZ MARQUES Common Visit Codes: CONSULT ONLY Consultation Codes: [id number] CONSULT <60MIN ABDIAZIZ MARQUES Apr 22, 2025 12:53
--- NOTE | 2025-04-22 13:08 | DVHPN2 ---
Reviewed: Care Plan, H&P, Labs, Medications, Previous Orders, Radiology Changes from previous H/P or p: No Changes Eyes: No Pain, No Vision change, No Conjunctivae inflammation, No Eyelid inflammation, No Other, No Redness ENT: No Ear pain, No Ear discharge, No Nose pain, No Nose discharge, No Nose congestion, No Mouth pain, No Mouth swelling, No Throat pain, No Throat swelling, No Other Cardiovascular: No Chest Pain, No Palpitations, No Orthopnea, No Paroxysmal Noc. Dyspnea, No Edema, No Lt Headedness, No Other Respiratory: No Cough, No Dry, No Shortness of breath, No SOB with excertion, No Wheezing, No Hemoptysis, No Pleuritic Pain, No Sputum, No Other Gastrointestinal: Nausea, Vomiting, Abdominal Pain, Diarrhea; No Constipation, No Melena, No Hematochezia, No Other Genitourinary: No Dysuria, No Frequency, No Incontinence, No Hematuria, No Retention, No Other Musculoskeletal: No other, No neck pain, No shoulder pain, No arm pain, No back pain, No hand pain, No leg pain, No foot pain Skin: No Rash, No Lesions, No Jaundice, No Bruising, No Other Objective Vitals Vital Signs Date Time Temp Pulse Resp B/P (MAP) Pulse Ox O2 Delivery O2 Flow Rate FiO2 04/22/25 09:00 98.0 71 19 121/54 (76) 92 98.0 04/22/25 08:00 Room Air* 0 21 Intake/Output Intake and Output 04/22/25 07:00 Intake Total 1300 ml Balance 1300 ml Intake Oral 300 ml IV Total 1000 ml # Voids 1 Medications Current Medications Medications Dose Ordered Sig/Briana Route Start Time Stop Time Status Last Admin Dose Admin Ondansetron HCl 4 mg Q4HP PRN IV 04/21/25 16:45 Docusate Sodium 100 mg BIDPRN PRN PO 04/21/25 16:45 Acetaminophen 650 mg Q6HP PRN PO 04/21/25 16:45 Metoclopramide HCl 10 mg Q8HPRN PRN IV 04/21/25 16:45 Pantoprazole Sodium 40 mg BID IV 04/21/25 22:00 04/22/25 10:43 40 MG Cyclobenzaprine HCl 10 mg BIDP PRN PO 04/21/25 16:45 Levothyroxine Sodium 50 mcg DAILY PO 04/22/25 10:00 04/22/25 10:43 50 MCG Patient Own Medication 1 tab HSPRN PRN PO 04/21/25 16:45 UNV Patient Own Medication 1 tab DAILY PO 04/22/25 10:00 Oxycodone/ Acetaminophen 2 tab Q6HP PRN PO 04/21/25 16:45 Hydroxyzine Pamoate 25 mg HSPRN PRN PO 04/21/25 17:00 Laboratory Results Laboratory Tests 04/22/25 05:01 Chemistry Test 04/22/25 05:01 Albumin 4.1 g/dL (3.2-4.8) Calcium Level 9.5 mg/dL (8.7-10.4) Total Protein 6.8 g/dL (5.7-8.2) LFT Test 04/22/25 05:01 Alanine Aminotransferase (ALT) 23 U/L (7-40) Alkaline Phosphatase 71 U/L (46-116) Aspartate Amino Transferase (AST) 16 U/L (13-40) Total Bilirubin 1.0 mg/dL (0.2-1.0) Urinalysis Test 04/21/25 11:46 Urine Color Light-yellow (Yellow) Urine Clarity Ex.turbid (Clear) Urine pH 8.5 (5.0-9.0) Urine Specific [place] 1.022 (1.001-1.035) Urine Protein 1+ (Negative) H Urine Ketones Negative (Negative) Urine Blood Negative /uL (Negative) Urine Nitrite Negative (Negative) Urine Bilirubin Negative (Negative) Urine Urobilinogen Normal mg/dL (Negative) Urine Leukocyte Esterase Negative /uL (Negative) Urine RBC 2 /hpf (0 - 4) Urine Microscopic WBC 23 /HPF (0-5) H Urine Squamous Epithelial Cells Few /hpf (<5) Urine Bacteria None seen /hpf (None Seen) Urine Glucose Normal mg/dL (Normal) Labs and/or images reviewed: Labs reviewed by me, Image(s) reviewed by me Assessment/Plan Assessment/Plan Intractable nausea and vomiting,: CBC and CMP within normal limits CT abdomen pelvis without contrast negative, GI consult appreciated Intractable abdominal pain, Hypothyroidism, Anxiety, Obesity, GERD Check Lipase and urine drug screen Plan discussed with: Patient My Orders Orders - LYNETTE MARQUES MD Procedure Category Date Status Time Drug Screen LAB 04/22/25 Transmitted 13:03 Lipase LAB 04/22/25 Transmitted 13:04 Date of Service: Apr 22, 2025 Billing Provider: LYNETTE MARQUES MD Common Visit Codes: [id number] INP/OBS CARE(HIGH) LYNETTE MARQUES MD Apr 22, 2025 13:08
[2025-04-22 15:54] LABS: Barbiturate Scree,Urine Neg (NEGATIVE)
[2025-04-22 15:57] LABS: Amphetamine Screen, Urine Neg (NEGATIVE); Benzodiazephine Screen, Urine Neg (NEGATIVE); Cannabinoid Screen, Urine Pos (NEGATIVE); Cocaine Screen, Urine Neg (NEGATIVE); Opiate Scree,Urine Neg (NEGATIVE); Phencyclidine Screen, Urine Neg (NEGATIVE)
[2025-04-23 05:00] VITALS: BP 115/68; PULSE 77; RESP 18; TEMP 98.2; O2SAT 98
[2025-04-23 08:47] VITALS: BP 123/58; PULSE 74; RESP 18; TEMP 97.9; O2SAT 97
[2025-04-23] MEDS ORDERED: ZOFR4T PO (10:07)
--- NOTE | 2025-04-23 10:10 | DVHDS2 ---
Discharge Summary Date of Admission Apr 21, 2025 at 16:36 Date of Discharge: Apr 23, 2025 Admitting Diagnosis Nausea and vomiting Wounds: None Labs/Diagnostic Data: Laboratory Results Test 04/23/25 09:25 04/22/25 14:50 04/22/25 05:01 04/21/25 11:46 Urine Opiates Screen Neg (NEGATIVE) Urine Fentanyl Screen Neg (NEGATIVE) Urine Barbiturates Screen Neg (NEGATIVE) Urine Phencyclidine Screen Neg (NEGATIVE) Urine Amphetamines Screen Neg (NEGATIVE) Urine Benzodiazepines Screen Neg (NEGATIVE) Urine Cocaine Screen Neg (NEGATIVE) Urine Cannabinoids Screen Pos (NEGATIVE) White Blood Count 8.4 10^3/uL (4.4-10.8) Red Blood Count 4.87 10^6/uL (4.0-5.20) Hemoglobin 14.3 g/dL (12.2-16.2) Hematocrit 42.0 % (36.0-46.0) Mean Corpuscular Volume 86.3 fL (80.0-100.0) Mean Corpuscular Hemoglobin 29.4 pg (28.0-32.0) Mean Corpuscular Hemoglobin Concent 34.1 g/dL (32.0-36.0) Red Cell Distribution Width 14.9 % (11.8-14.3) Platelet Count 181 10^3/uL (140-450) Mean Platelet Volume 8.7 fL (6.9-10.8) Neutrophils (%) (Auto) 56.7 % (37.0-80.0) Lymphocytes (%) (Auto) 35.2 % (10.0-50.0) Monocytes (%) (Auto) 6.3 % (0.0-12.0) Eosinophils (%) (Auto) 1.3 % (0.0-7.0) Basophils (%) (Auto) 0.5 % (0.0-2.0) Neutrophils # (Auto) 4.8 10 ^3/uL (1.6-8.6) Lymphocytes # (Auto) 2.9 10 ^3/uL (0.4-5.4) Monocytes # (Auto) 0.5 10 ^3/uL (0-1.3) Eosinophils # (Auto) 0.1 10 ^3/uL (0-0.8) Basophils # (Auto) 0 10 ^3/uL (0-0.2) Nucleated Red Blood Cells 0.1 % Sodium Level 142 mmol/L (136-145) Potassium Level 3.4 mmol/L (3.5-5.1) Chloride Level 108 mmol/L (98-107) Carbon Dioxide Level 23 mmol/L (20-31) Anion Gap 11 (5-15) Blood Urea Nitrogen 8 mg/dL (9-23) Creatinine 0.76 mg/dL (0.550-1.02) Glomerular Filtration Rate Calc 93 mL/min (>90) BUN/Creatinine Ratio 10.5 (10.0-20.0) Serum Glucose 94 mg/dL (74-106) Calcium Level 9.5 mg/dL (8.7-10.4) Total Bilirubin 1.0 mg/dL (0.2-1.0) Aspartate Amino Transferase (AST) 16 U/L (13-40) Alanine Aminotransferase (ALT) 23 U/L (7-40) Alkaline Phosphatase 71 U/L (46-116) Total Protein 6.8 g/dL (5.7-8.2) Albumin 4.1 g/dL (3.2-4.8) Lipase 43 U/L (12-53) Hepatitis B Surface Antigen Negative (Negative) Hepatitis C Antibody Negative (Negative) Urine Color Light-yellow (Yellow) Urine Clarity Ex.turbid (Clear) Urine pH 8.5 (5.0-9.0) Urine Specific [place] 1.022 (1.001-1.035) Urine Protein 1+ (Negative) Urine Ketones Negative (Negative) Urine Blood Negative /uL (Negative) Urine Nitrite Negative (Negative) Urine Bilirubin Negative (Negative) Urine Urobilinogen Normal mg/dL (Negative) Urine Leukocyte Esterase Negative /uL (Negative) Urine RBC 2 /hpf (0 - 4) Urine Microscopic WBC 23 /HPF (0-5) Urine Squamous Epithelial Cells Few /hpf (<5) Urine Bacteria None seen /hpf (None Seen) Urine Glucose Normal mg/dL (Normal) Other Laboratory Tests 04/22/25 05:01 Brief Hx & Hospital Course: 54-year-old female with a history of marijuana abuse anxiety hypothyroidism GERD came in for nausea and vomiting. CBC CMP within normal limits CT abdomen pelvis without contrast negative seen by GI Dr. Andrei Darnell. Tested positive for marijuana. History of C diff colitis . Ordered C diff but patient did not have the bowel movement. Patient feels better without any nausea or vomiting and wants to go home. Discharged home on Zofranprn. Consults/Reason for consult GI Dr. Andrei Darnell Operations or Procedures CT abdomen pelvis without contrast Condition at Discharge: Fair Final Diagnosis/Problems List ntractable nausea and vomiting,: CBC and CMP within normal limits CT abdomen pelvis without contrast negative, GI consult appreciated Intractable abdominal pain, Hypothyroidism, Anxiety, Obesity, GERD Discharge Disposition: Home Discharge Instruct/Medications Diet: Regular Activity: Light activity Follow Up/Referral: Stop using marijuana Follow up with the primary Dr Medications: Zofran Transmitted to pharmacy 35 (Time taken for discharge summary 35 mts) Discharge Statement: "Patient was advised to return to the ER or call 911 if any headaches, dizziness, shortness of breath, chest pain, abdominal pain, bleeding, fevers, or worsening of medical condition. Patient was counseled about treatment plan, medications, possible side effects, patientverbalized understanding. All questions were answered to the best of my ability. This discharge took greater then 30 minutes in planning, reviewing documentation, counseling the patient, and discussing with other team members." ASSESSMENT ASSESSMENT Assessment ntractable nausea and vomiting,: CBC and CMP within normal limits CT abdomen pelvis without contrast negative, GI consult appreciated Intractable abdominal pain, Hypothyroidism, Anxiety, Obesity, GERD Date of Service: Apr 23, 2025 Billing Provider: LYNETTE MARQUES MD Common Visit Codes: [id number] DISCH DAY >30min LYNETTE MARQUES MD Apr 23, 2025 10:10
[2025-04-23 13:00] VITALS: BP 124/73; PULSE 64; RESP 18; TEMP 98; O2SAT 96
[2025-04-23 15:30] VITALS: BP 121/70; PULSE 70; RESP 18; TEMP 98; O2SAT 98
--- NOTE | 2025-04-23 22:00 | DVHPN2 ---
Progress Note - Dictate Date Seen: Apr 23, 2025 (Late entryTime of visit 2:00 p.m.) Medical Necessity Reason Pt with a Central, PICC or Fol: No Subjective No new complaints Patient awake alert times x 3 sitting up in bed There was no nausea vomiting or abdominal pain today Stool tests negative, labs normal Tox screen positive for marijuana vital signs Vital Sign Date Time Temp Pulse Resp B/P (MAP) Pulse Ox O2 Delivery O2 Flow Rate FiO2 04/23/25 15:30 98.0 70 18 121/70 (87) 98 98.0 04/23/25 08:00 Room Air* 0 21 Total Intake and Output 04/22/25 04/22/25 04/23/25 14:59 22:59 06:59 Intake Total 1000 ml 930 ml Balance 1000 ml 930 ml medications Current Medications Medications Dose Ordered Sig/Briana Route Start Time Stop Time Status Last Admin Dose Admin Patient Own Medication 1 tab HSPRN PRN PO 04/21/25 16:45 UNV objective General: NAD, AAOX3 Chest: lung garcia clear to auscultation Heart: RRR, no murmur Abdomen: non-distended, no tenderness to palpation, +BS laboratory and microbiology Laboratory Tests 04/22/25 05:01 Test 04/22/25 05:01 Range/Units Serum Glucose 94 74-106 mg/dL Problems(with codes): (1) Marijuana use (2) Cyclical vomiting syndrome (3) Intractable nausea and vomiting (4) Intractable abdominal pain Prognosis Plan Advance diet as tolerated Continue symptomatic care Patient counseled about discontinuing marijuana Outpatient follow up with GI Services to discuss elective panendoscopy and colonoscopy for screening Plan discussed with: Other (Christie Lester) AIRAM KENNEDY MD Apr 23, 2025 22:00
== END 2025-04-23 15:30 | disposition home or self-care (01) | DRG 243 ==
LOC: ER 09:55 → OVERFLOW 16:36 → EAST 22:43
PROVIDERS: ADMIT Family Medicine; ATTEND Family Medicine
DX: K21.9 Gastro-esophageal reflux disease without esophagitis (principal); E03.9 Hypothyroidism, unspecified; R11.2 Nausea with vomiting, unspecified; F41.9 Anxiety disorder, unspecified; E66.9 Obesity, unspecified; Z86.19 Personal history of other infectious and parasitic diseases; Z79.899 Other long term (current) drug therapy; Z90.49 Acquired absence of other specified parts of digestive tract; Z68.41 Body mass index [BMI] 40.0-44.9, adult
CPT/HCPCS: 36415; 74177; 80048; 80053; 80307; 81001; 82270; 83690; 85025; 85048; 86803; 87045; 87340; 87427; 87493; 93005; 96372; 96374; 96375; 99291; G0378; J2405; J2470; J3490

== ENCOUNTER 2025-07-01 19:34 | Emergency (ER) | payer MEDICAID ==
[~2025-07-01 19:34] MED LIST changes: +CHOL20007 PO; +CYCL-611 PO; -CYCL-838 PO; -GABA300T4 PO; +HYDR-3682 PO; +LEVO50TA7 PO; +MAGN84TA4 PO; +PANT40T PO; +PERCOT PO; +PREG50CA PO; +SOLI10TA39 PO; +SUCR1TAB PO; +TIRZ2.5I2 SC; +ZOFR4T PO
[2025-07-01 19:35] VITALS: TEMP 98.1
[2025-07-01 20:06] VITALS: BP 110/52; PULSE 70; RESP 18; O2SAT 96
[2025-07-01] MEDS ORDERED: ACET500T58 PO (20:16)
[2025-07-01] MEDS ORDERED: AMOX875T4 PO (20:16)
[2025-07-01] MEDS ORDERED: FLUC150T38 PO (20:19)
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
[2025-07-01] MEDS: TETANUS-DIPTH-ACEL PERTUSSIS 0.5ML SYR Tdap IM ONE (20:24)
== END 2025-07-01 20:29 | disposition home or self-care (01) ==
LOC: ER 19:34
DX: S41.052A Open bite of left shoulder, initial encounter (principal); Y04.1XXA Assault by human bite, initial encounter; Y93.89 Activity, other specified; Y92.89 Other specified places as the place of occurrence of the external cause; Y99.8 Other external cause status
CPT/HCPCS: 90471; 90715

== ENCOUNTER 2025-08-27 09:26 | Inpatient (IN) | payer MEDICAID ==
[~2025-08-27] VITALS: Ht 165.1 cm; Wt 116.1 kg
[~2025-08-27 09:26] MED LIST changes: +ACET500T58 PO; +AMOX875T4 PO; +FLUC150T38 PO
--- NOTE | 2025-08-27 09:56 | ECG ---
[facility] Test Date: 2025-08-27 Test Time: 09:48:04 Pat Name: ESTEPHANIA HARRISON Department: ED Room: 0235 Gender: F Sketch Maker: CARLYN : 1970 Requested By: DARNELL JENSEN Order Number: [id number] Reading MD: Walter Du Measurements Intervals Hecker Rate: 67 P: 49 MD: 136 QRS: 27 QRSD: 105 T: 50 QT: 394 QTc: 416 Interpretive Statements Sinus rhythm RSR' in V1 or V2, right VCD or RVH Baseline wander in lead(s) V1,V3,V4,V5,V6 Electronically Signed On 08-29-2025 18:44:07 PDT by Walter Du Please click the below link to view image of tracing.
[2025-08-27] MEDS: HYDROmorphone HCL 2 MG/ML VL/or syr IV ONE (10:43)
[2025-08-27] MEDS: SODIUM CHLORIDE 0.9% 1,000 ML IVB ONE (10:43)
[2025-08-27] MEDS: ONDANSETRON HCL 4 MG/2 ML VIAL IV ONE (10:43)
--- NOTE | 2025-08-27 10:49 | DVH ---
CLINICAL INFORMATION: Abdominal pain. Renal stone. TECHNIQUE: Axial CT images of the abdomen and pelvis were obtained without IV contrast. Coronal and s agittal reformatted images were obtained, reviewed, and stored. Evaluation of the parenchymal organs is limited without IV contrast. Evaluation of the bowel and mesentery is limited without oral contras t. All CT scans at this medical facility are performed using dose modulation techniques as appropriat e to a performed exam including the following: Automated exposure control was utilized; adjustment of the MA and/or KV according to patient size; and use of iterative reconstruction technique. CTDIvol = 25.75 mGy DLP = 1396.07 mGy-cm COMPARISON: CT dated 04/21/[address] dated 03/06/2025. FINDINGS: Lung bases: Atelectasis in the lung bases. Liver: Grossly unremarkable in its noncontrast enhanced appearance. No abnormal density or focal lesi on identified. Biliary: Cholecystectomy. Common bile duct is prominent, measuring up to 1.2 cm in diameter, which ma y be seen after cholecystectomy and appears similar to prior exams. Spleen: Unremarkable. Pancreas: Grossly unremarkable in its noncontrast enhanced appearance. Adrenal glands: Left adrenal nodule measures up to 1 cm, with density consistent with a benign lipid rich adenoma. Kidneys: No hydronephrosis. No renal or ureteral calculi. Exophytic lesion at the midpole of the left kidney measures up to 1.4 cm in greatest dimension, measures slightly higher than simple fluid atten uation. Stable compared to prior exams. Small subcentimeter low-attenuation lesion at the posterior a spect of the left kidney is too small to characterize. Aorta/Vascular: No aneurysm or significant calcification. Lymph nodes: No mass or lymphadenopathy. Bowel/mesentery: No small bowel obstruction. No free air or free fluid. Appendix is visualized and ap pears unremarkable. Pelvic organs: Uterus is anteverted. Bladder: Unremarkable. No mass. Abdominal wall: No mass or hernia. Bones: No acute fracture or suspicious intraosseous lesion. IMPRESSION: 1. No acute abnormality identified in the abdomen or pelvis. 2. No hydronephrosis and no renal or ureteral calculi visualized. 3. Exophytic lesions in the left kidney, the largest of which measures slightly higher than simple fl uid attenuation, possibly a complex cyst. The lesions appear stable compared to prior exams, most li betzy complex cysts when correlated with previous contrast enhanced imaging. Correlate with clinical f indings. 4. Mildly dilated common bile duct, may be seen after cholecystectomy due to reservoir effect and sta ble in appearance compared to prior exams. 5. Stable appearing benign left adrenal adenoma. 6. Additional nonacute findings as described above.
[2025-08-27 11:50] LABS: Hematocrit 44.4 % (36.0-46.0); Hemoglobin 14.8 g/dL (12.2-16.2); Mean Corpuscular Hemoglobin 29.2 pg (28.0-32.0); Mean Corpuscular Volume 87.6 fL (80.0-100.0); Nucleated Red Blood Cells % 0.0 %
[2025-08-27 11:57] LABS: Chloride 106 mmol/L (98-107); Potassium 4.0 mmol/L (3.5-5.1); Sodium 141 mmol/L (136-145)
[2025-08-27 11:58] LABS: Anion Gap 14 (5-15); Calcium 9.8 mg/dL (8.7-10.4); Carbon Dioxide 21 mmol/L (20-31)
[2025-08-27 12:03] LABS: BUN/Creatinine Ratio 14.6 (10.0-20.0); Blood Urea Nitrogen 13 mg/dL (9-23); Glucose 127 mg/dL (74-106)
--- NOTE | 2025-08-27 12:13 | ED.PDOC ---
History of Present Illness HPI Comments 55-year-old female came to the ER complaining of abdominal pain which started at 4:30 a.m. this morning. Abdominal pain associated with nausea vomiting. States that her abdominal pain is 10/10. No radiation of the abdominal pain. She also states that she is having problem urinating. She does have a history of umbilical in a higher repair. Denies any other symptoms. Chief Complaint: Abdominal Pain Time Seen by MD: 09:36 Primary Care Provider: UNKNOWN Reviewed Notes: Nurses Notes, Medications, Allergies Allergies: Coded Allergies: NO KNOWN ALLERGIES (Unverified , 04/21/25) Home Meds Active Scripts Amoxicillin & Pot Clavulanate (Amoxicillin/Potassium Cla) 875 Mg Tab, 1 TAB PO BID for 7 Days, #14 TAB 0 Refills Prov:HOMA WETZEL 07/01/25 Fluconazole (Diflucan) 150 Mg Tab, 1 TAB PO ONCE, #1 TAB 0 Refills Prov:HOMA WETZEL 07/01/25 Acetaminophen (Acetaminophen) 500 Mg Tab, 500 MG PO Q4HPRN, #30 TAB 0 Refills Prov:HOMA WETZEL 07/01/25 Ondansetron Odt 4MG Tab (ZOFRAN PO) 4 Mg Tb, 4 MG PO QID PRN, #30 TAB ODT TAB-DISSOLVE IN MOUTH, THEN SWALLOW Prov:LYNETTE MARQUES MD 04/23/25 Reported Medications Tirzepatide (Zepbound) 2.5 Mg/0.5 Ml Inj, 2.5 MG SC, INJ 04/22/25 Pregabalin (Lyrica) 50 Mg Cap, 1 CAP PO TID, #90 CAP 04/22/25 Magnesium Lactate (Mag-Tab Sr) 84 Mg Tab, 84 MG PO, TAB 04/22/25 Cholecalciferol (VITAMIN D3) 2,000 Unit Tab, 1 TAB PO DAILY, #30 TAB 5 Refills 04/22/25 Oxycodone W/ Acetaminophen (Percocet 5/325MG) 1 Tab Tb, 1 TAB PO QID, #120 TAB 04/22/25 Sucralfate (Sucralfate) 1 Gm Tab, 1 GM PO, GM 04/22/25 Cyclobenzaprine HCl (Cyclobenzaprine Hydrochlo) 10 Mg Tab, 1 TAB PO BIDP PRN 04/21/25 Hydroxyzine Hcl (Hydroxyzine Hcl) 25 Mg Tab, 1 TAB PO HSPRN PRN 04/21/25 Levothyroxine Sodium (Levothyroxine Sodium) 50 Mcg Tab, 1 TAB PO DAILY 04/21/25 Solifenacin Succinate (Solifenacin Succinate) 10 Mg Tab, 1 TAB PO DAILY 04/21/25 Pantoprazole Sodium Sesquihydr (Pantoprazole Sodium) 40 Mg Tab, 1 TAB PO BID 04/21/25 Information Source: Patient Mode of Arrival: Ambulatory Severity: Moderate Timing: Days Duration: Since onset Past Medical History PAST MEDICAL HISTORY: Arthritis Surgical History: Denies all surgeries 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 LOCKSTITCH 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: Denies all 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 CLOSER LOCKSTITCH Hx Family History Family History: Unknown Social History Smoker: Non-Smoker Alcohol: Denies ETOH Use Drugs: Denies Drug Use Lives In: Home Constitutional: denies: chills, diaphoresis, fatigue, fever, malaise, sweats, weakness, others EENTM: denies: blurred vision, double vision, ear bleeding, ear discharge, ear drainage, ear pain, ear ringing, eye pain, eye redness, hearing loss, mouth pain, mouth swelling, nasal discharge, nose bleeding, nose congestion, nose pain, photophobia, tearing, throat pain, throat swelling, voice changes, others Respiratory: denies: cough, hemoptysis, orthopnea, SOB at rest, shortness of breath, SOB with excertion, stridor, wheezing, others Cardiovascular: denies: chest pain, dizzy spells, diaphoresis, Dyspnea on exertion, edema, irregular heart beat, left arm pain, lightheadedness, palpitations, PND, syncope, others Gastrointestinal: reports: abdominal pain, nausea, vomiting; denies: abdomen distended, blood streaked bowels, constipated, diarrhea, dysphagia, difficulty swallowing, hematemesis, melena, poor appetite, poor fluid intake, rectal bleeding, rectal pain, others Genitourinary: denies: abnormal vagina bleeding, burning, dyspareunia, dysuria, flank pain, frequency, hematuria, incontinence, pain, , vagina discharge, urgency, others Neurological: denies: dizziness, fainting, headache, left sided numbness, left sided weakness, numbness, paresthesia, pre-existing deficit, right sided numbness, right sided weakness, seizure, speech problems, tingling, tremors, weakness, others Musculoskeletal: denies: back pain, gout, joint pain, joint swelling, muscle pain, muscle stiffness, neck pain, others Integumetry: denies: bruises, change in color, change in hair/nails, dryness, laceration, lesions, lumps, rash, wounds, others Allergic/Immunocompromised: denies: Difficulty Healing, Frequent Infections, Hives, Itching, others Hematologic/Lymphatic: denies: anemia, blood clots, easy bleeding, easy bruising, swollen glands, others Endocrine: denies: excessive hunger, excessive sweating, excessive thirst, excessive urination, flushing, intolerance to cold, intolerance to heat, unexpla ined weight gain, unexplained weight loss, others Psychiatric: denies: anxiety, bipolar disorder, depression, hopeless, panic disorder, schizophrenia, sleepless, suicidal, others Physical Exam General Appearance: Moderate Distress HEENT: Normal ENT Inspection, Pharynx Normal, TMs Normal Neck: Full Range of Motion, Non-Tender, Normal, Normal Inspection Respiratory: Chest Non-Tender, Lungs Clear, No Accessory Muscle Use, No Respiratory Distress, Normal Breath Sounds Cardiovascular: No Edema, No JVD, No Murmur, No Gallop, Normal Peripheral Pulses, Regular Rate/Rhythm Breast Exam: Deferred Gastrointestinal: Diffuse, No Organomegaly, No Pulsatile Mass, Normal Bowel Sounds, Soft Genitalia: Deferred Pelvic: Deferred Rectal: Deferred Extremities: No calf tenderness, Normal capillary refill, Normal inspection, Normal range of motion, Non-tender, No pedal edema Musculoskeletal : Apperance: Normal Neurologic: Alert, motor coach operator II-XII nml as Tested, No Motor Deficits, Normal Affect, Normal Mood, No Sensory Deficits Cerebellar Function: Normal Reflexes: Normal Skin: Dry, Normal Color, Warm Lymphatic: No Adenopathy Was a procedure done? Was a procedure done?: No Differential Dx Considerations may include: Gastroenteritis Electrolyte imbalance X-Ray, Labs, Meds, VS Vital Signs Date Time Temp Pulse Resp B/P (MAP) Pulse Ox O2 Delivery O2 Flow Rate FiO2 08/27/25 11:45 68 18 125/86 (99) 98 08/27/25 11:22 99 Room Air* 0 21 08/27/25 11:13 68 18 125/86 08/27/25 10:43 81 20 173/81 08/27/25 10:24 98.2 70 18 172/91 (118) 98 98.2 08/27/25 10:00 98.0 70 18 126/86 (99) 98 98.0 08/27/25 10:00 70 18 98 Room Air 08/27/25 09:48 67 08/27/25 09:30 99.6 73 18 182/80 97 99.6 Lab Test 08/27/25 11:22 Range/Units White Blood Count 8.3 4.4-10.8 10^3/uL Red Blood Count 5.07 4.0-5.20 10^6/uL Hemoglobin 14.8 12.2-16.2 g/dL Hematocrit 44.4 36.0-46.0 % Mean Corpuscular Volume 87.6 80.0-100.0 fL Mean Corpuscular Hemoglobin 29.2 28.0-32.0 pg Mean Corpuscular Hemoglobin Concent 33.4 32.0-36.0 g/dL Red Cell Distribution Width 14.3 11.8-14.3 % Platelet Count 195 140-450 10^3/uL Mean Platelet Volume 8.9 6.9-10.8 fL Neutrophils (%) (Auto) 83.8 H 37.0-80.0 % Lymphocytes (%) (Auto) 13.5 10.0-50.0 % Monocytes (%) (Auto) 2.0 0.0-12.0 % Eosinophils (%) (Auto) 0.1 0.0-7.0 % Basophils (%) (Auto) 0.6 0.0-2.0 % Neutrophils # (Auto) 6.9 1.6-8.6 10 ^3/uL Lymphocytes # (Auto) 1.1 0.4-5.4 10 ^3/uL Monocytes # (Auto) 0.2 0-1.3 10 ^3/uL Eosinophils # (Auto) 0 0-0.8 10 ^3/uL Basophils # (Auto) 0 0-0.2 10 ^3/uL Nucleated Red Blood Cells 0.0 % Sodium Level 141 136-145 mmol/L Potassium Level 4.0 3.5-5.1 mmol/L Chloride Level 106 98-107 mmol/L Carbon Dioxide Level 21 20-31 mmol/L Anion Gap 14 5-15 Blood Urea Nitrogen 13 9-23 mg/dL Creatinine 0.89 0.550-1.02 mg/dL Glomerular Filtration Rate Calc 77 >90 mL/min BUN/Creatinine Ratio 14.6 10.0-20.0 Serum Glucose 127 H 74-106 mg/dL Calcium Level 9.8 8.7-10.4 mg/dL Current Medications Medications (Trade) Dose Ordered Sig/Briana Route Start Time Stop Time Status Last Admin Ondansetron HCl (Zofran) 4 mg ONCE ONCE IV 08/27/25 10:00 08/27/25 10:01 DC 08/27/25 10:43 Sodium Chloride 1,000 ml @ 1,000 mls/hr Q1H ONCE IVB 08/27/25 10:00 08/27/25 10:59 DC 08/27/25 10:43 Hydromorphone HCl (Dilaudid Injection) 0.5 mg ONCE ONCE IV 08/27/25 10:00 08/27/25 10:01 DC 08/27/25 10:43 Patient alert. Complaining of abdominal pain. Denies use of drugs. Abdomen is soft. WBC within normal limits. Hemoglobin within normal limits. Establish intravenous access. Was given fluids. Was given pain medication. Was given Zofran. Continues to have abdominal pain. Possibly colitis. Explained to the patient. Continue monitoring. Time of 1ST Reevaluation: 12:11 Reevaluation 1ST: Unchanged Patient Education/Counseling: Diagnosis, Treatment, Prognosis Family Education/Counseling: No Family Present SEPSIS Sepsis Screen Date sepsis recognized/suspect: Aug 27, 2025 Time Sepsis recognized/suspect: 930 Recent Procedure: No On Antibiotic Therapy: No Respiratory Rate >20: No Heart Rate >90: No Temp<36 C (96.8 F) or >38.3 C: No SBP <90 or MAP <65 mmHG: No New Acute Mental Status Change: No Is the patient on CPAP, BIPAP,: No Physician Orders Urinalysis (08/27/25 09:54) Ct Ab Pel Wo Con-No Oral Or Iv (08/27/25 09:54) Vital Signs Date Time Temp Pulse Resp B/P (MAP) Pulse Ox O2 Delivery O2 Flow Rate FiO2 08/27/25 11:45 68 18 125/86 (99) 98 08/27/25 11:22 99 Room Air* 0 21 08/27/25 11:13 68 18 125/86 08/27/25 10:43 81 20 173/81 08/27/25 10:24 98.2 70 18 172/91 (118) 98 98.2 08/27/25 10:00 98.0 70 18 126/86 (99) 98 98.0 08/27/25 10:00 70 18 98 Room Air 08/27/25 09:48 67 08/27/25 09:30 99.6 73 18 182/80 97 99.6 Laboratory Tests Test 08/27/25 11:22 White Blood Count 8.3 10^3/uL (4.4-10.8) Medications Medications Dose Ordered Sig/Briana Route Start Time Stop Time Status Last Admin Dose Admin Hydromorphone HCl 0.5 mg ONCE ONCE IV 08/27/25 10:00 08/27/25 10:01 DC 08/27/25 10:43 Ondansetron HCl 4 mg ONCE ONCE IV 08/27/25 10:00 08/27/25 10:01 DC 08/27/25 10:43 Sodium Chloride 1,000 ml @ 1,000 mls/hr Q1H ONCE IVB 08/27/25 10:00 08/27/25 10:59 DC 08/27/25 10:43 Departure 1 Departure Time of Disposition: 12:12 Impression: Primary Impression: Intractable nausea and vomiting Additional Impression: Intractable abdominal pain Disposition: ADMITTED INPATIENT Admit to: Med Surg Condition: Guarded Critical Care Note Critical Care Time?: No Stability Stability form required: No Heart Score Heart Score: Heart Score Response (Comments) Value History N/A 0 EKG N/A 0 Age N/A 0 Risk Factors N/A 0 Troponin N/A 0 Total 0 DARNELL JENSEN MD Aug 27, 2025 12:13
[2025-08-27 13:11] VITALS: PULSE 63; RESP 18; O2SAT 98
[2025-08-27] MEDS: PROCHLORPERAZINE EDISYLATE 5 MG/ML 2ML VIAL IV ONE (15:38)
[2025-08-27] MEDS ORDERED: ACETAMINOPHEN 325 MG TAB PO PRN (16:15)
[2025-08-27 17:06] LABS: Urine Protein, UAD 1+ (Negative)
[2025-08-27] MEDS: KETOROLAC TROMETH 30 MG/ML 1ML VIAL IV PRN (17:11)
[2025-08-27] MEDS: ONDANSETRON HCL 4 MG/2 ML VIAL IV PRN (17:11)
[2025-08-27] MEDS: PANTOPRAZOLE 40 MG/10 ML VIAL INJ IV ONE (17:11)
[2025-08-27 18:13] VITALS: BP 129/65; PULSE 65; RESP 18; TEMP 98.5; O2SAT 98
--- NOTE | 2025-08-27 18:48 | DVHHP2 ---
History of Present Illness Reason for Visit: Abdominal pain History of Present Illness 55-year-old female presents for evaluation of abdominal pain. Patient reports taking zepbound for weight loss. She reports not taking it for the past two weeks. Patient reports that on Sunday she started taking it again on the higher dose and the following day she developed abdominal pain. She states now having nausea and vomiting as well. Denies diarrhea. No fever or chills. Past Medical History Arthritis Past Surgical History Denies Family History Noncontributory Smoke: No ALCOHOL: none Drugs: None Lives: with Family Review of Systems Review of Systems Review of systems are currently negative otherwise addressed in HPI. Allergies: Coded Allergies: NO KNOWN ALLERGIES (Unverified , 04/21/25) Medications Current Medications Medications Dose Ordered Sig/Briana Route Start Time Stop Time Status Last Admin Dose Admin Pantoprazole Sodium 40 mg DAILY IV 08/28/25 10:00 Ketorolac Tromethamine 15 mg Q6HPRN PRN IV 08/27/25 16:15 09/01/25 16:14 08/27/25 17:11 15 MG Acetaminophen/ Hydrocodone Bitart 1 tab Q4HP PRN PO 08/27/25 16:15 Temazepam 15 mg QHSP PRN PO 08/27/25 16:15 Ondansetron HCl 4 mg Q4HP PRN IV 08/27/25 16:15 08/27/25 17:11 4 MG Acetaminophen 650 mg Q6HP PRN PO 08/27/25 16:15 Exam Vital Signs Vital Signs Date Time Temp Pulse Resp B/P (MAP) Pulse Ox O2 Delivery O2 Flow Rate FiO2 08/27/25 18:13 98.5 65 18 129/65 (86) 98 98.5 08/27/25 18:13 Room Air* 0 21 Exam Gen: 55-year-old female in mild distress, morbidly obese Skin: Warm, dry, normal color and texture, no rash. HEENT: Normocephalic atraumatic, mucous membranes moist and pink. Neck: Cervical and supraclavicular nodes normal without enlargement, trachea is midline, thyroid gland is normal without masses. Pulmonary: Clear to auscultation and percussion bilaterally. Cardiac: Regular rate and rhythm. No murmur Abdomen: Soft, nontender, nondistended, bowel sounds present all 4 quadrants, no guarding, no rigidity, no organomegaly. Extremities: No cyanosis, clubbing, no edema Neuro: Cranial nerves II through XII grossly intact, normal affect and speech, no focal motor deficits. Labs/Xrays ORDERING PHYSICIAN: DARNELL JENSEN MD PROCEDURE(s): ABPL - CT AB PEL WO CON-NO ORAL OR IV REASON: stone ORDER NUMBER(s): [id number], ACCESSION NUMBER(s): [id number] CLINICAL INFORMATION: Abdominal pain. Renal stone. TECHNIQUE: Axial CT images of the abdomen and pelvis were obtained without IV contrast. Coronal and sagittal reformatted images were obtained, reviewed, and stored. Evaluation of the parenchymal organs is limited without IV contrast. Evaluation of the bowel and mesentery is limited without oral contrast. All CT scans at this medical facility are performed using dose modulation techniques as appropriate to a performed exam including the following: Automated exposure control was utilized; adjustment of the MA and/or KV according to patient size; and use of iterative reconstruction technique. CTDIvol = 25.75 mGy DLP = 1396.07 mGy-cm COMPARISON: CT dated 04/21/[address] dated 03/06/2025. FINDINGS: Lung bases: Atelectasis in the lung bases. Liver: Grossly unremarkable in its noncontrast enhanced appearance. No abnormal density or focal lesion identified. Biliary: Cholecystectomy. Common bile duct is prominent, measuring up to 1.2 cm in diameter, which may be seen after cholecystectomy and appears similar to prior exams. Spleen: Unremarkable. Pancreas: Grossly unremarkable in its noncontrast enhanced appearance. Adrenal glands: Left adrenal nodule measures up to 1 cm, with density consistent with a benign lipid rich adenoma. Kidneys: No hydronephrosis. No renal or ureteral calculi. Exophytic lesion at the midpole of the left kidney measures up to 1.4 cm in greatest dimension, measures slightly higher than simple fluid attenuation. Stable compared to prior exams. Small subcentimeter low-attenuation lesion at the posterior aspect of the left kidney is too small to characterize. Aorta/Vascular: No aneurysm or significant calcification. Lymph nodes: No mass or lymphadenopathy. Bowel/mesentery: No small bowel obstruction. No free air or free fluid. Appendix is visualized and appears unremarkable. Pelvic organs: Uterus is anteverted. Bladder: Unremarkable. No mass. Abdominal wall: No mass or hernia. Bones: No acute fracture or suspicious intraosseous lesion. IMPRESSION: 1. No acute abnormality identified in the abdomen or pelvis. 2. No hydronephrosis and no renal or ureteral calculi visualized. 3. Exophytic lesions in the left kidney, the largest of which measures slightly higher than simple fluid attenuation, possibly a complex cyst. The lesions appear stable compared to prior exams, most likely complex cysts when correlated with previous contrast enhanced imaging. Correlate with clinical findings. 4. Mildly dilated common bile duct, may be seen after cholecystectomy due to reservoir effect and stable in appearance compared to prior exams. 5. Stable appearing benign left adrenal adenoma. 6. Additional nonacute findings as described above. Labs Test 08/27/25 14:43 08/27/25 11:22 Range/Units Urine Color Yellow Yellow Urine Clarity Clear Clear Urine pH 6.0 5.0-9.0 Urine Specific [place] 1.032 1.001-1.035 Urine Protein 1+ H Negative Urine Ketones 4+ H Negative Urine Blood Trace H Negative /uL Urine Nitrite Negative Negative Urine Bilirubin Negative Negative Urine Urobilinogen Normal Negative mg/dL Urine Leukocyte Esterase 1+ Negative /uL Urine RBC 8 0 - 4 /hpf Urine Microscopic WBC 29 H 0-5 /HPF Urine Squamous Epithelial Cells Few <5 /hpf Urine Bacteria None seen None Seen /hpf Urine Mucus Few None Seen Urine Glucose Normal Normal mg/dL White Blood Count 8.3 4.4-10.8 10^3/uL Red Blood Count 5.07 4.0-5.20 10^6/uL Hemoglobin 14.8 12.2-16.2 g/dL Hematocrit 44.4 36.0-46.0 % Mean Corpuscular Volume 87.6 80.0-100.0 fL Mean Corpuscular Hemoglobin 29.2 28.0-32.0 pg Mean Corpuscular Hemoglobin Concent 33.4 32.0-36.0 g/dL Red Cell Distribution Width 14.3 11.8-14.3 % Platelet Count 195 140-450 10^3/uL Mean Platelet Volume 8.9 6.9-10.8 fL Neutrophils (%) (Auto) 83.8 H 37.0-80.0 % Lymphocytes (%) (Auto) 13.5 10.0-50.0 % Monocytes (%) (Auto) 2.0 0.0-12.0 % Eosinophils (%) (Auto) 0.1 0.0-7.0 % Basophils (%) (Auto) 0.6 0.0-2.0 % Neutrophils # (Auto) 6.9 1.6-8.6 10 ^3/uL Lymphocytes # (Auto) 1.1 0.4-5.4 10 ^3/uL Monocytes # (Auto) 0.2 0-1.3 10 ^3/uL Eosinophils # (Auto) 0 0-0.8 10 ^3/uL Basophils # (Auto) 0 0-0.2 10 ^3/uL Nucleated Red Blood Cells 0.0 % Sodium Level 141 136-145 mmol/L Potassium Level 4.0 3.5-5.1 mmol/L Chloride Level 106 98-107 mmol/L Carbon Dioxide Level 21 20-31 mmol/L Anion Gap 14 5-15 Blood Urea Nitrogen 13 9-23 mg/dL Creatinine 0.89 0.550-1.02 mg/dL Glomerular Filtration Rate Calc 77 >90 mL/min BUN/Creatinine Ratio 14.6 10.0-20.0 Serum Glucose 127 H 74-106 mg/dL Calcium Level 9.8 8.7-10.4 mg/dL Lipase 38 12-53 U/L SEPSIS Sepsis Screen Date sepsis recognized/suspect: Aug 27, 2025 Time Sepsis recognized/suspect: 1317 Recent Procedure: No On Antibiotic Therapy: No Respiratory Rate >20: No Heart Rate >90: No Temp<36 C (96.8 F) or >38.3 C: No SBP <90 or MAP <65 mmHG: No New Acute Mental Status Change: No Is the patient on CPAP, BIPAP,: No Physician Orders * [facility] Search Advertising Strategist (08/27/25 16:06) Pantoprazole (Protonix) (08/28/25 10:00) Ketorolac Injection (Toradol Injection) (08/27/25 16:15) Basic Metabolic Panel (08/28/25 04:00) Admit (08/27/25 16:06) Hydrocodone-Acet 5/325mg Tab ([place] 5/32 (08/27/25 16:15) Temazepam (Restoril) (08/27/25 16:15) Ondansetron Hcl (Zofran) (08/27/25 16:15) Condition: Stable (08/27/25 16:06) Acetaminophen Tablet (Tylenol Tablet) (08/27/25 16:15) Clear Liq Diet (08/27/25 Dinner) Bedrest With Bathroom Privileg (08/27/25 16:06) Vital Signs Date Time Temp Pulse Resp B/P (MAP) Pulse Ox O2 Delivery O2 Flow Rate FiO2 08/27/25 18:13 98.5 65 18 129/65 (86) 98 98.5 08/27/25 18:13 65 18 98 Room Air* 0 21 08/27/25 17:10 98.3 65 20 149/86 (107) 99 98.3 08/27/25 14:46 98.4 60 20 154/97 (116) 99 98.4 08/27/25 13:11 63 18 98 Room Air* 0 21 08/27/25 11:45 68 18 125/86 (99) 98 08/27/25 11:22 99 Room Air* 0 21 08/27/25 11:13 68 18 125/86 Laboratory Tests Test 08/27/25 11:22 White Blood Count 8.3 10^3/uL (4.4-10.8) Medications Medications Dose Ordered Sig/Briana Route Start Time Stop Time Status Last Admin Dose Admin Hydromorphone HCl 0.5 mg ONCE ONCE IV 08/27/25 10:00 08/27/25 10:01 DC 08/27/25 10:43 0.5 MG Ketorolac Tromethamine 15 mg Q6HPRN PRN IV 08/27/25 16:15 09/01/25 16:14 08/27/25 17:11 15 MG Ondansetron HCl 4 mg ONCE ONCE IV 08/27/25 10:00 08/27/25 10:01 DC 08/27/25 10:43 4 MG Ondansetron HCl 4 mg Q4HP PRN IV 08/27/25 16:15 08/27/25 17:11 4 MG Pantoprazole Sodium 40 mg ONCE ONCE IV 08/27/25 16:15 08/27/25 16:36 DC 08/27/25 17:11 40 MG Prochlorperazine Edisylate 10 mg ONCE ONCE IV 08/27/25 15:30 08/27/25 15:31 DC 08/27/25 15:38 10 MG Sodium Chloride 1,000 ml @ 1,000 mls/hr Q1H ONCE IVB 08/27/25 10:00 08/27/25 10:59 DC 08/27/25 10:43 1,000 MLS/HR Assessment/Plan Assessment/Plan Assessment Acute abdominal pain, possibly related Zepbound Urinary tract infection Morbid obesity Plan Admit the patient to [facility] to the hospitalist Clear liquid diet GI consultation Maintenance IV fluids Pain management Rocephin Continue treatment per orders. Plan discussed with: Patient My Orders Orders - CAMILO RAMIREZ Procedure Category Date Status Time * Gi D[facility] Search Advertising Strategist CONS 08/27/25 Transmitted 16:06 Pantoprazole PHA 08/28/25 In Process (Protonix) 10:00 Ketorolac Injection PHA 08/27/25 In Process (Toradol Injection) 16:15 Basic Metabolic Panel LAB 08/28/25 Verified 04:00 Admit ADMIT 08/27/25 Transmitted 16:06 Hydrocodone-Acet PHA 08/27/25 In Process 5/325mg Tab ([place] 16:15 Temazepam (Restoril) PHA 08/27/25 In Process 16:15 Ondansetron Hcl PHA 08/27/25 In Process (Zofran) 16:15 Condition: Stable TAB 08/27/25 In Process 16:06 Acetaminophen Tablet PHA 08/27/25 In Process (Tylenol Tablet) 16:15 Clear Liq Diet DIET 08/27/25 Transmitted Dinner Bedrest With Bathroom TAB 08/27/25 In Process Privileg 16:06 Date of Service: Aug 27, 2025 Billing Provider: CAMILO RAMIREZ Common Visit Codes: [id number] INP/OBS CARE (MOD) CAMILO RAMIREZ Aug 27, 2025 18:48
[2025-08-27 20:00] VITALS: RESP 17; O2SAT 96
[2025-08-27 21:00] VITALS: BP 100/53; PULSE 98; RESP 17; TEMP 97.9; O2SAT 97
[2025-08-28] VITALS (7 sets, daily range): BP systolic 95–134; BP diastolic 52–85; PULSE 56–103; RESP 14–18; TEMP 97.3–98.4; O2SAT 95–99
[2025-08-28] MEDS: HYDROcodone-ACET 5/325MG TAB PO PRN (03:35)
[2025-08-28 04:13] LABS: Chloride 105 mmol/L (98-107); Potassium 3.7 mmol/L (3.5-5.1); Sodium 144 mmol/L (136-145)
[2025-08-28 04:14] LABS: Anion Gap 13 (5-15); Calcium 8.9 mg/dL (8.7-10.4); Carbon Dioxide 26 mmol/L (20-31)
[2025-08-28 04:19] LABS: BUN/Creatinine Ratio 14.0 (10.0-20.0); Blood Urea Nitrogen 13 mg/dL (9-23); Glucose 86 mg/dL (74-106)
[2025-08-28] MEDS: PANTOPRAZOLE 40 MG/10 ML VIAL INJ IV SCH (09:48)
--- NOTE | 2025-08-28 12:21 | DVHPN2 ---
Subjective The patient is seen and examined at bedside. The patient is still complain of severe abdominal pain. Reviewed: Care Plan, H&P, Labs, Medications, Previous Orders, Radiology Changes from previous H/P or p: No Changes Objective Vitals Vital Signs Date Time Temp Pulse Resp B/P (MAP) Pulse Ox O2 Delivery O2 Flow Rate FiO2 08/28/25 09:03 97.5 73 16 113/66 (82) 96 97.5 08/28/25 08:00 Room Air* 0 21 Intake/Output Intake and Output 08/28/25 07:00 Intake Total 650 ml Output Total 500 ml Balance 150 ml Intake Oral 600 ml IV Total 50 ml Output Urine Total 300 ml Emesis 200 ml # Voids 5 General Appearance: Alert, Oriented X3, Cooperative, No acute distress HEENT: Atraumatic, PERRLA, EOMI, Mucous membr. moist/pink Neck: Supple Lungs: Clear to auscultation, Normal air movement Cardiovascular: Regular rate, Normal S1, Normal S2, No murmurs, Gallops, Rubs Abdomen: Normal bowel sounds, Soft, No tenderness Neuro: Cranial nerves 3-12 NL Psych/Mental Status: Mental status NL Medications Current Medications Medications Dose Ordered Sig/Briana Route Start Time Stop Time Status Last Admin Dose Admin Pantoprazole Sodium 40 mg DAILY IV 08/28/25 10:00 08/28/25 09:48 40 MG Ketorolac Tromethamine 15 mg Q6HPRN PRN IV 08/27/25 16:15 09/01/25 16:14 08/28/25 09:49 15 MG Acetaminophen/ Hydrocodone Bitart 1 tab Q4HP PRN PO 08/27/25 16:15 08/28/25 03:35 1 TAB Temazepam 15 mg QHSP PRN PO 08/27/25 16:15 Ondansetron HCl 4 mg Q4HP PRN IV 08/27/25 16:15 08/27/25 17:11 4 MG Acetaminophen 650 mg Q6HP PRN PO 08/27/25 16:15 Ceftriaxone Sodium 50 ml @ 100 mls/hr DAILY@0500 IV 08/28/25 05:00 08/28/25 05:06 100 MLS/HR Laboratory Results Laboratory Tests 08/27/25 11:22 08/28/25 03:20 Chemistry Test 08/28/25 03:20 Calcium Level 8.9 mg/dL (8.7-10.4) Urinalysis Test 08/27/25 14:43 Urine Color Yellow (Yellow) Urine Clarity Clear (Clear) Urine pH 6.0 (5.0-9.0) Urine Specific [place] 1.032 (1.001-1.035) Urine Protein 1+ (Negative) H Urine Ketones 4+ (Negative) H Urine Blood Trace /uL (Negative) H Urine Nitrite Negative (Negative) Urine Bilirubin Negative (Negative) Urine Urobilinogen Normal mg/dL (Negative) Urine Leukocyte Esterase 1+ /uL (Negative) Urine RBC 8 /hpf (0 - 4) Urine Microscopic WBC 29 /HPF (0-5) H Urine Squamous Epithelial Cells Few /hpf (<5) Urine Bacteria None seen /hpf (None Seen) Urine Mucus Few (None Seen) Urine Glucose Normal mg/dL (Normal) Labs and/or images reviewed: Labs reviewed by me, Image(s) reviewed by me Assessment/Plan Assessment/Plan Acute abdominal pain, possibly related Zepbound Urinary tract infection Morbid obesity Continuing current management. Discussed with the patient regarding to Zepbound and the potential causing abdominal pain. Continuing IV antibiotic Rocephin. We will follow up with culture. Her CT scan abdomen pelvis showed possible complex cyst of the kidney so MRI subsequently was done which showed Bilateral renal cysts. No enhancing renal mass. Mild hepatomegaly.Mild choledocho ectasia of the common bile duct status post cholecystectomy. Continuing IV pain medication I started her on Dilaudid 0.5 IV q.6 hours. Continuing with [place]. This medical document was created using an electronic medical record system with [employer] direct computerized dictation system. Although this document has been carefully reviewed, there may still be some phonetic and typographical errors. These areas are purely typographical due to imperfections of the software programs, and do not reflect any compromise in the patient's medical care. Plan discussed with: Patient Date of Service: Aug 28, 2025 Billing Provider: LISET RUTHERFORD MD Common Visit Codes: [id number] INP/OBS CARE(HIGH) LISET RUTHERFORD MD Aug 28, 2025 12:20
[2025-08-28] MEDS ORDERED: GADOTERATE MEG 10 MMOL/20ml INJ (0.5MMOL/ml) IV ONE (13:55)
[2025-08-28 15:15] LABS: Urine Budding Yeast OCCASIONAL /hpf (None Seen); Urine Protein, UAD Negative (Negative)
--- NOTE | 2025-08-28 16:57 | DVH ---
CLINICAL HISTORY: kidney mass TECHNIQUE: MRI of the abdomen was performed with and without gadolinium. 20 ml of clariscan was ad ministered intravenously. 3D reconstructed images were obtained. 3D reconstructed images were created under concurrent radiologist supervision and archived on the PACS system. WID: COMPARISON: CT CT AB PEL WO CON-NO ORAL OR IV on DOS: 08/27/25, FINDINGS: Lower Thorax: Unremarkable. Liver and Biliary system: Mild hepatomegaly measuring 18 cm craniocaudal. Hepatic lesion. Major port al veins are patent. Prior cholecystectomy. There is choledocho ectasia of the common bile duct measu ring 1.2 cm on series 2, image 22. No intrahepatic bile duct dilatation. No choledocholithiasis. Spleen: Unremarkable. Adrenal Glands and Kidneys: There are bilateral renal cysts, largest in the interpolar / lower pole l eft kidney measuring 1.5 cm on series 4, image 24. No enhancing renal lesion. No hydronephrosis. Pancreas and Retroperitoneum: Unremarkable. Aorta and Major Vessels: Unremarkable. Bowel, Mesentery and Peritoneal space: Unremarkable. Abdominal wall and Osseous Structures: Mild spondylosis of the visualized thoracic and lumbar spine IMPRESSION: 1. Bilateral renal cysts. No enhancing renal mass. 2. Mild hepatomegaly. 3. 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
[2025-08-29 01:00] VITALS: BP 110/62; PULSE 68; RESP 17; TEMP 97.3; O2SAT 99
[2025-08-29 08:00] VITALS: RESP 17; O2SAT 96
[2025-08-29 08:39] VITALS: BP 127/75; PULSE 80; RESP 14; TEMP 97.7; O2SAT 95
[2025-08-29] MEDS: OXYCODONE W/ ACETAMINOPHEN 5/325MG TABLET PO PRN (12:06)
--- NOTE | 2025-08-29 12:34 | DVH ---
Indication: abdominal pain Technique: XY KUB ABDOMEN SINGLE VIEWXY Comparison: None FINDINGS/IMPRESSION: Moderate volume stool in the colon. Nonobstructive bowel gas pattern. Cholecystectomy. No evidence for free intraperitoneal air.
[2025-08-29 12:45] VITALS: BP 171/96; PULSE 64; RESP 20; TEMP 98.3; O2SAT 99
[2025-08-29] MEDS: POLYETHYLENE GLYCOL 17 GM PWDR PO PRN (13:19)
--- NOTE | 2025-08-29 14:43 | DVHPN2 ---
Subjective The patient is seen and examined at bedside. Still complain of abdominal pain. Reviewed: Care Plan, H&P, Labs, Medications, Previous Orders, Radiology Changes from previous H/P or p: No Changes Objective Vitals Vital Signs Date Time Temp Pulse Resp B/P (MAP) Pulse Ox O2 Delivery O2 Flow Rate FiO2 08/29/25 12:45 98.3 64 20 171/96 (121) 99 98.3 08/29/25 08:00 Room Air* 0 21 Intake/Output Intake and Output 08/29/25 07:00 Intake Total 1250 ml Balance 1250 ml Intake Oral 1200 ml IV Total 50 ml # Voids 20 # Bowel Movements 2 General Appearance: Alert, Oriented X3, Cooperative, No acute distress HEENT: Atraumatic, PERRLA, EOMI, Mucous membr. moist/pink Neck: Supple Lungs: Clear to auscultation, Normal air movement Cardiovascular: Regular rate, Normal S1, Normal S2, No murmurs, Gallops, Rubs Abdomen: Normal bowel sounds, Soft, No tenderness Neuro: Cranial nerves 3-12 NL Psych/Mental Status: Mental status NL Medications Current Medications Medications Dose Ordered Sig/Briana Route Start Time Stop Time Status Last Admin Dose Admin Pantoprazole Sodium 40 mg DAILY IV 08/28/25 10:00 08/29/25 09:49 40 MG Ketorolac Tromethamine 15 mg Q6HPRN PRN IV 08/27/25 16:15 09/01/25 16:14 08/29/25 14:16 15 MG Temazepam 15 mg QHSP PRN PO 08/27/25 16:15 Ondansetron HCl 4 mg Q4HP PRN IV 08/27/25 16:15 08/29/25 14:21 4 MG Acetaminophen 650 mg Q6HP PRN PO 08/27/25 16:15 Ceftriaxone Sodium 50 ml @ 100 mls/hr DAILY@0500 IV 08/28/25 05:00 08/29/25 04:59 100 MLS/HR Oxycodone/ Acetaminophen 2 tab Q6HP PRN PO 08/29/25 11:00 08/29/25 12:06 2 TAB Docusate Sodium 100 mg BID PO 08/29/25 22:00 Polyethylene Glycol 17 gm DAILYPRN PRN PO 08/29/25 11:00 10/18/25 13:19 17 GM Laboratory Results Laboratory Tests 08/27/25 11:22 08/28/25 03:20 Urinalysis Test 08/28/25 14:00 Urine Color Light-yellow (Yellow) Urine Clarity Clear (Clear) Urine pH 6.0 (5.0-9.0) Urine Specific [place] 1.018 (1.001-1.035) Urine Protein Negative (Negative) Urine Ketones Negative (Negative) Urine Blood 1+ /uL (Negative) H Urine Nitrite Negative (Negative) Urine Bilirubin Negative (Negative) Urine Urobilinogen Normal mg/dL (Negative) Urine Leukocyte Esterase 3+ /uL (Negative) Urine RBC 9 /hpf (0 - 4) Urine Microscopic WBC 103 /HPF (0-5) H Urine Squamous Epithelial Cells Few /hpf (<5) Urine Bacteria None seen /hpf (None Seen) Urine Mucus Few (None Seen) Urine Yeast ([place]) Occasional /hpf (None Urine Glucose Normal mg/dL (Normal) Labs and/or images reviewed: Labs reviewed by me Assessment/Plan Assessment/Plan Acute abdominal pain, possibly related Zepbound Urinary tract infection Morbid obesity Continuing current management. Discussed with the patient regarding to Zepbound and the potential causing abdominal pain. Continuing IV antibiotic Rocephin. We will follow up with culture. Her CT scan abdomen pelvis showed possible complex cyst of the kidney so MRI subsequently was done which showed Bilateral renal cysts. No enhancing renal mass. Mild hepatomegaly.Mild choledocho ectasia of the common bile duct status post cholecystectomy. Continuing IV pain medication I started her on Dilaudid 0.5 IV q.6 hours. We will change [place] to Percocet because the patient prefers Percocet Discharge planning This medical document was created using an electronic medical record system with M[employer] direct computerized dictation system. Although this document has been carefully reviewed, there may still be some phonetic and typographical errors. These areas are purely typographical due to imperfections of the software programs, and do not reflect any compromise in the patient's medical care. Plan discussed with: Patient My Orders Orders - LISET RUTHERFORD MD Procedure Category Date Status Time Oxycodone W/ Acet PHA 08/29/25 In Process 5/325mg Tab (Percocet 11:00 Docusate Sodium PHA 08/29/25 In Process Capsule (Colace 22:00 Polyethylene Glycol PHA 08/29/25 In Process 17g Powder (Miralax 11:00 Kub Abdomen Single XY 08/29/25 Resulted View 11:59 Date of Service: Aug 29, 2025 Billing Provider: LISET RUTHERFORD MD Common Visit Codes: [id number] INP/OBS CARE(HIGH) LISET RUTHERFORD MD Aug 29, 2025 14:43
[2025-08-29] MEDS ORDERED: LORazepam 2MG/ML-1ML VIAL IV PRN (15:30)
[2025-08-29] MEDS: METOCLOPRAMIDE HCL 5MG/ml INJ 2ml VIAL IV PRN (16:05)
[2025-08-29] MEDS: HYDROmorphone HCL 2 MG/ML VL/or syr IV PRN (16:13)
[2025-08-29 16:46] VITALS: BP 149/79; PULSE 64; RESP 22; TEMP 97; O2SAT 99
[2025-08-29 21:00] VITALS: BP 122/80; PULSE 54; RESP 16; TEMP 97.2; O2SAT 96
[2025-08-29] MEDS: TEMAZEPAM 15 MG CAP PO PRN (21:07)
[2025-08-29] MEDS: DOCUSATE SOD 100 MG CAP PO SCH (21:08)
[2025-08-30 01:00] VITALS: BP 126/76; PULSE 56; RESP 16; TEMP 98.5; O2SAT 97
[2025-08-30 05:00] VITALS: BP 127/70; PULSE 66; RESP 14; TEMP 97.1; O2SAT 100
[2025-08-30 08:08] VITALS: O2SAT 96
[2025-08-30 09:27] VITALS: BP_SYST 121; BP_SYST 131; BP_DIAS 75; BP_DIAS 84; PULSE 61; PULSE 63; RESP 18; TEMP 97.2; TEMP 97.3; O2SAT 95; O2SAT 96
[2025-08-30 12:37] VITALS: BP 145/68; PULSE 59; RESP 14; TEMP 97.7; O2SAT 95
--- NOTE | 2025-08-30 13:52 | DVHDS2 ---
Discharge Summary Date of Admission Aug 27, 2025 at 16:06 Date of Discharge: Aug 30, 2025 Admitting Diagnosis Acute abdominal pain, possibly related Zepbound Urinary tract infection Morbid obesity Labs/Diagnostic Data: Laboratory Results Test 08/28/25 14:00 08/28/25 03:20 08/27/25 11:22 Urine Color Light-yellow (Yellow) Urine Clarity Clear (Clear) Urine pH 6.0 (5.0-9.0) Urine Specific [place] 1.018 (1.001-1.035) Urine Protein Negative (Negative) Urine Ketones Negative (Negative) Urine Blood 1+ /uL (Negative) Urine Nitrite Negative (Negative) Urine Bilirubin Negative (Negative) Urine Urobilinogen Normal mg/dL (Negative) Urine Leukocyte Esterase 3+ /uL (Negative) Urine RBC 9 /hpf (0 - 4) Urine Microscopic WBC 103 /HPF (0-5) Urine Squamous Epithelial Cells Few /hpf (<5) Urine Bacteria None seen /hpf (None Seen) Urine Mucus Few (None Seen) Urine Yeast (Budding) Occasional /hpf (None Urine Glucose Normal mg/dL (Normal) Sodium Level 144 mmol/L (136-145) Potassium Level 3.7 mmol/L (3.5-5.1) Chloride Level 105 mmol/L (98-107) Carbon Dioxide Level 26 mmol/L (20-31) Anion Gap 13 (5-15) Blood Urea Nitrogen 13 mg/dL (9-23) Creatinine 0.93 mg/dL (0.550-1.02) Glomerular Filtration Rate Calc 73 mL/min (>90) BUN/Creatinine Ratio 14.0 (10.0-20.0) Serum Glucose 86 mg/dL (74-106) Calcium Level 8.9 mg/dL (8.7-10.4) White Blood Count 8.3 10^3/uL (4.4-10.8) Red Blood Count 5.07 10^6/uL (4.0-5.20) Hemoglobin 14.8 g/dL (12.2-16.2) Hematocrit 44.4 % (36.0-46.0) Mean Corpuscular Volume 87.6 fL (80.0-100.0) Mean Corpuscular Hemoglobin 29.2 pg (28.0-32.0) Mean Corpuscular Hemoglobin Concent 33.4 g/dL (32.0-36.0) Red Cell Distribution Width 14.3 % (11.8-14.3) Platelet Count 195 10^3/uL (140-450) Mean Platelet Volume 8.9 fL (6.9-10.8) Neutrophils (%) (Auto) 83.8 % (37.0-80.0) Lymphocytes (%) (Auto) 13.5 % (10.0-50.0) Monocytes (%) (Auto) 2.0 % (0.0-12.0) Eosinophils (%) (Auto) 0.1 % (0.0-7.0) Basophils (%) (Auto) 0.6 % (0.0-2.0) Neutrophils # (Auto) 6.9 10 ^3/uL (1.6-8.6) Lymphocytes # (Auto) 1.1 10 ^3/uL (0.4-5.4) Monocytes # (Auto) 0.2 10 ^3/uL (0-1.3) Eosinophils # (Auto) 0 10 ^3/uL (0-0.8) Basophils # (Auto) 0 10 ^3/uL (0-0.2) Nucleated Red Blood Cells 0.0 % Lipase 38 U/L (12-53) Other Laboratory Tests 08/28/25 03:20 08/27/25 11:22 Brief Hx & Hospital Course: This is a 55 years old female come to emergency department because of abdominal pain. The patient reports taking Zepbound for weight loss. The patient apparently had severe pain after taking this medication couple months ago so she stopped. This time she tried it again in continuing to have abdominal pain shows she stopped it for two weeks. However this Sunday she started taking it again at a higher dose and then developed severe abdominal pain with nausea or vomiting. She can not take any think or keep any food down. So the patient decided to come to hospital for further evaluation. Patient CT scan abdomen and pelvis showed Exophytic lesions in the left kidney, the largest of which measures slightly higher than simple fluid attenuation, possibly a complex cyst. The lesions appear stable compared to prior exams, most likely complex cysts when correlated with previous contrast enhanced imaging. The patient subsequently had MRI of the abdomen done which showed: Bilateral renal cysts. No enhancing renal mass. Mild hepatomegaly. 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 The patient was given pain medication with Dilaudid and Percocet. The patient was given IV antibiotic with Rocephin 1 g IV q.day for empirically treat UTI since her UA showed leukocyte esterase. Today the patient feel better. The patient is able to tolerate diet. Abdominal pain improved. I am discharge her home. Advised her to stop Zepbound. Advised her to discuss with primary care physician for on different methods of losing weight or different medication. Activity as tolerated. Diet per home diet. Recommend low-salt low-cholesterol carb controlled diet. Physical exam: HEENT: Normocephalic atraumatic pupils equal react to light and accommodation. Extraocular muscles intact, conjunctiva pink, oropharynx moist, no thrush, no exudate. Lymphatic: No lymphadenopathy Cardiovascular exam: S1, S2 was heard. No murmurs, rubs, gallops Lung: Clear on auscultation bilaterally, no wheeze, rale, rhonchi. GI: Abdominal soft, nondistended, nontenderness, positive bowel sounds. Extremity: No crepitus, cyanosis, edema. Pedal pulses present bilateral. Full range of motion. Skin: Normal turgor, no rash. Psych: Alert, oriented x3. Neurology: No focal deficits, cranial nerve II to XII grossly intact. This medical document was created using an electronic medical record system with [employer] direct computerized dictation system. Although this document has been carefully reviewed, there may still be some phonetic and typographical errors. These areas are purely typographical due to imperfections of the software programs, and do not reflect any compromise in the patient's medical care. Condition at Discharge: Stable Final Diagnosis/Problems List Acute abdominal pain, possibly related Zepbound Urinary tract infection Morbid obesity Bilateral renal cysts Discharge Disposition: Home Discharge Instruct/Medications Scheduled Acetaminophen (Acetaminophen), 500 MG PO Q4HPRN Cholecalciferol (Vitamin D3), 1 TAB PO DAILY, (Reported) Fluconazole (Diflucan), 1 TAB PO ONCE Levofloxacin Hemihydrate (Levaquin 500 Mg), 1 TAB PO DAILY Levothyroxine Sodium (Levothyroxine Sodium), 1 TAB PO DAILY, (Reported) Pantoprazole Sodium Sesquihydr (Pantoprazole Sodium), 1 TAB PO BID, (Reported) Pregabalin (Lyrica), 1 CAP PO TID, (Reported) Solifenacin Succinate (Solifenacin Succinate), 1 TAB PO DAILY, (Reported) Scheduled PRN Cyclobenzaprine HCl (Cyclobenzaprine Hydrochlo), 1 TAB PO BIDP PRN, (Reported) Hydroxyzine Hcl (Hydroxyzine Hcl), 1 TAB PO HSPRN PRN, (Reported) Ondansetron Odt 4MG Tab (Zofran Po), 4 MG PO QID PRN Oxycodone W/ Acetaminophen (Percocet 5/325MG), 1 TAB PO QID PRN Miscellaneous Medications Magnesium Lactate (Mag-Tab Sr), 84 MG PO, (Reported) Sucralfate (Sucralfate), 1 GM PO, (Reported) Tirzepatide (Zepbound), 2.5 MG SC, (Reported) Discontinued Medications Amoxicillin & Pot Clavulanate (Amoxicillin/Potassium Cla), 1 TAB PO BID Discharge Statement: "Patient was advised to return to the ER or call 911 if any headaches, dizziness, shortness of breath, chest pain, abdominal pain, bleeding, fevers, or worsening of medical condition. Patient was counseled about treatment plan, medications, possible side effects, patientverbalized understanding. All questions were answered to the best of my ability. This discharge took greater then 30 minutes in planning, reviewing documentation, counseling the patient, and discussing with other team members." ASSESSMENT ASSESSMENT Assessment Date of Service: Aug 30, 2025 Billing Provider: LISET RUTHERFORD MD Common Visit Codes: 85511-PRF/OBS DISCH DAY >30min LISET RUTHERFORD MD Aug 30, 2025 13:52
[2025-08-30] MEDS ORDERED: PERCOT PO (13:53)
[2025-08-30] MEDS ORDERED: LEVO500T91 PO (13:55)
[2025-08-30 15:17] VITALS: TEMP 36.5
== END 2025-08-30 16:18 | disposition home or self-care (01) | DRG 463 ==
LOC: ER 09:26 → OVERFLOW 16:06 → EAST 17:48 → TELE-EAST 08-28 12:13 → EAST 08-30 08:03
PROVIDERS: ADMIT Internal Medicine; ATTEND Internal Medicine
DX: N30.01 Acute cystitis with hematuria (principal); R16.0 Hepatomegaly, not elsewhere classified; E66.01 Morbid (severe) obesity due to excess calories; N28.1 Cyst of kidney, acquired; Z79.2 Long term (current) use of antibiotics; T50.995A Adverse effect of other drugs, medicaments and biological substances, initial encounter; Z68.41 Body mass index [BMI] 40.0-44.9, adult; Z79.899 Other long term (current) drug therapy; Z90.49 Acquired absence of other specified parts of digestive tract; Y92.89 Other specified places as the place of occurrence of the external cause
CPT/HCPCS: 36415; 74018; 74176; 74183; 80048; 81001; 83690; 85025; 93005; 96361; 96374; 96375; G0378; J1885; J2405; J2470